=== PATIENT | female | born 1945 | race Caucasian/White ===

== ENCOUNTER 2017-07-19 09:30 | Inpatient (IN) ==
--- NOTE | 2017-07-19 08:48 | Anesthesia Evaluation PreOp ---
Date of Encounter: 07/19/17 Time of Encounter: 08:46 - Past History Planned Operation: Robotic R-partial nephrectomy Cardiac History: HTN, Hyperlipidemia Pulmonary History: Denies Any Significant HX DRIER History: Seizures (last approx 5 weeks ago) Other Medical History: Renal (Hx Renal Cyst) Anesthesia History: No Prior Anesthetic Complications, Past Anesthesia ( Hysterectomy, Ignacia, R-broken leg/ORIF?, D&C) Alcohol Use: none Medications and Allergies Alendronate Sodium [Fosamax] 70 mg PO MO 07/19/17 [History] Amlodipine Besylate [Amlodipine Besylate] 10 mg PO DAILY 07/19/17 [History] Calcium Carbonate [Calcium] 500 mg PO BID 07/19/17 [History] Ergocalciferol (VITAMIN D2) [Vitamin D2] 50,000 unit PO QMONTH 07/19/17 [History ] Gabapentin [Neurontin] 300 mg PO 5XD 07/19/17 [History] Losartan Potassium [Cozaar] 100 mg PO DAILY 07/19/17 [History] Metoprolol Succinate [Toprol Xl] 50 mg PO DAILY 07/19/17 [History] PHENobarbital [Phenobarbital] 64.8 mg PO HS 07/19/17 [History] Pantoprazole Sodium [Protonix] 40 mg PO QAM 07/19/17 [History] lamoTRIgine [Lamictal] 100 mg PO BID 07/19/17 [History] 3 Allergy/AdvReac Type Severity Reaction Status Date / Time alprazolam [From Xanax] AdvReac Dizziness Verified 07/19/17 10:02 citalopram AdvReac Dizziness Verified 07/19/17 10:02 divalproex sodium AdvReac Dizziness Verified 07/19/17 10:02 [From Depakote] Paroxetine [From Paxil] AdvReac Dizziness Verified 07/19/17 10:02 - Meds/Allergy Pre-op Review Medications Reviewed: Yes Allergies Reviewed: Yes Beta Blockers on Current Med List: Yes (Metoprolol) If Beta Blockers taken, Date/Time (Last Dose taken): 07/19/2017 @ 0600 Anesthesia Results - Labs Laboratory Tests 07/15/17 07/15/17 07/15/17 12:05 12:05 12:05 WBC 7.0 Hgb 11.6 Hct 37.0 Plt Count 192 PT 11.9 INR 1.1 APTT 34.5 Sodium 143 Potassium 4.5 Chloride 107 Carbon Dioxide 27 BUN 14 Creatinine 0.71 Est GFR (Non-Af Amer) > 60 - Imaging EKG: image reviewed Anesthesia Exam O2 Sat Height 1.6 m Height 1.6 m Weight 78.925 kg Weight 78.925 kg Height: 5'3" Weight: 174# BMI = 31 NPO (# of Hours): MNOc - HEENT Pupil (Motor): Pupils equal, EOMI Mallampati: II Teeth: Edentulous Oral Opening: Greater than 3 - DRIER LOC: Oriented DRIER Motor: Normal RUE, Normal LUE, Normal RLE, Normal LLE, Normal Face DRIER Sensory: Normal: RUE, LUE, RLE, LLE, Face - Cardiac Rhythm: Regular Murmur: None - Pulmonary Breath Sounds: bilateral Clear Respiratory Effort: Symmetrical Anesthesia Assess/Plan ASA Score: 3 (Seizures/Epilepsy, Chol, HTN, REnal Cyst) Modified Wyatt Scale for Level of Consciousness: Cooperative, oriented, and tranquil Anesthetic Plan: General Monitoring Plan: Standard Monitors Recovery Plan: PACU Anes Supervising Prov Stmt: Pt seen/evaluated, R&B discussed, questions answered and consent obtained. Addis Damon MD
[~2017-07-19 09:30] MED LIST: *HR* FentaNYL PATCH 25 MCG PATCH TD ONE; Acetaminophen IV 1,000 MG/100 ML INFUS..BTL IVPB ONE; Famotidine 20 MG/2 ML VIAL IVP ONE; Pregabalin 75 MG CAPSULE PO ONE
[2017-07-19] MEDS ORDERED: CeFAZolin Syr 2,000MG/20 ML 2,000 MG/20 ML SYRINGE IVPB ONE (09:53)
[2017-07-19] MEDS ORDERED: Ringers Solution, Lactated 1,000 ML IVC SCH (10:00)
[2017-07-19] MEDS ORDERED: Dexamethasone 4 MG/ML VIAL ONE (10:03)
[2017-07-19] MEDS ORDERED: *HR* FentaNYL (PF) 100 MCG/2 ML VIAL ONE ×2 (10:03→12:01)
[2017-07-19] MEDS ORDERED: *HR* Midazolam HCl 2 MG/2 ML VIAL ONE (10:03)
[2017-07-19] MEDS ORDERED: *HR* Rocuronium Bromide 50 MG/5 ML VIAL ONE (10:03)
[2017-07-19] MEDS ORDERED: Ondansetron 4 MG/2 ML VIAL ONE (10:03)
[2017-07-19] MEDS ORDERED: *HR* Propofol 200 MG/20 ML VIAL IVP ONE (10:03)
[2017-07-19] MEDS ORDERED: Lidocaine -MPF 2% 2 ML VIAL ONE (10:03)
--- NOTE | 2017-07-19 10:24 | History & Physical Report ---
Date of Encounter: 07/19/17 Time of Encounter: 10:24 24 Hour HP Update - Instructions Instructions: If the History and Physical is less than 30 days old and was completed prior to A.M. admission and or procedure and has NOT been updated on calendar day of procedure please complete this update prior to performing procedure. - Update Patient reports changes in Medical Condition: No Changes in examination, assessment, or condition: No Changes in Medication: No Preop tests/diagnostics Reviewed: Yes Surgery Remains Indicated: Yes Consent for Planned Operative Procedure(s) Verified: Yes - Pre-Operative Checklist Preoperative Checklist Indicated: Yes Prophylactic Antibiotic Ordered: Yes Home Medications Include Beta Law: Yes Is VTE Prophylaxis Indicated?: Yes
[2017-07-19] MEDS ORDERED: Lidocaine -MPF 4% 5 ML AMPUL ONE (10:26)
[2017-07-19] MEDS ORDERED: Bupivacaine-MPF 0.25% 10 ML VIAL ONE (10:28)
[2017-07-19] MEDS ORDERED: Albumin Human 5% 25.0 GM/500 ML VIAL ONE (10:30)
[2017-07-19] MEDS ORDERED: Mannitol 25% vial 12.5 GM/50 ML VIAL ONE (10:30)
[2017-07-19] MEDS ORDERED: EPHEDrine 50 MG/ML VIAL ONE (12:27)
[2017-07-19] MEDS ORDERED: *HR* FentaNYL (PF) 100 MCG/2 ML VIAL IVP PRN (15:07)
[2017-07-19] MEDS ORDERED: Ondansetron 4 MG/2 ML VIAL IVP PRN ×2 (15:07→17:12)
[2017-07-19] MEDS ORDERED: Neostigmine Methylsulfate 3 MG/3 ML SYRINGE ONE (15:20)
--- NOTE | 2017-07-19 15:38 | Operative Note ---
Date of procedure: 07/19/17 Pre-op diagnosis: Right enhancing renal cyst Post-op diagnosis: same Procedure: Right robotic-assisted laparoscopic partial nephrectomy Implants: 19-Wallisian Jef drain 16 Wallisian Lee catheter Complications: None Anesthesia: MATILDEA Surgeon: Salazar Montano Was there an assistant in nursing present: Yes Slitter Scorer: Anthony Pollock Estimated blood loss (cc): 300 Specimen: right renal cyst Condition: stable Disposition: PACU Procedure in Detail: Indications: Jasmin is a 71-year-old woman who presents with an enhancing right renal cyst. After discussion of her options which included observation, biopsy, ablative techniques, or partial nephrectomy, she elected to undergo a right robotic partial nephrectomy. She was informed of the risks of the procedure which include but are not limited to bleeding, infection, injury to other structures, need for further procedures, urine leak, bowel injury, need for complete nephrectomy, need for open conversion, and the risk of anesthesia. She is willing to proceed. Procedure: After informed consent was obtained the patient was brought back to the operating room and placed in the supine position. A timeout was performed. Gen. anesthesia was then administered and an endotracheal tube was placed. Appropriate IV access and arterial lines were obtained. She was then placed in the flank position. Her right side was up. All pressure points were padded. She was well secured to the table. She was then prepped and draped in the usual sterile fashion. We then marked out our incision 2 fingerbreadths superior to the umbilicus and 2 fingerbreadths lateral to that. An 8 mm incision was then made. The Veress needle was introduced. 2 clicks were heard. It past the water drop test. Insufflation was then initiated. Pressures were low consecutively. The abdomen was insufflated. Once the pressure was up to 15, we inserted the 5 mm laparoscopic port with the visual obturator and the 5 mm laparoscopic camera. Entry was obtained into the abdomen. The bowel was surveyed below and there is no evidence of bowel injury. She previously had a large right upper quadrant incision when she had her gallbladder removed. I decided to approach this through a Visiport. Once in the abdomen there was a large adhesion extending from the omentum to the anterior abdominal wall. This was dissected down sharply. The lysis of adhesions took approximately 20 minutes. There is no evidence of bowel issue. Areas of bleeding near the abdominal wall were controlled using cautery. Robotic ports were then inserted. 2 robotic ports were placed inferior along the midclavicular line. Another robotic port was placed superior to the camera port in the midclavicular line just under the costal margin. The 5 mm port was exchanged for an 8 mm robotic port. A 12 mm assistant in nursing port was placed just lateral to the umbilicus. A 5 mm port was placed along the midline superior to the umbilicus and this was used to retract the liver. The bowel was reflected off the kidney along the white line of Toldt using electrocautery dissection. The duodenum was identified. This was kocherized. The inferior vena cava was then seen and dissection proceeded superiorly to the level of the renal vein. Superior to the renal vein I identified the renal artery and this was dissected out. The liver was reflected away using a locking laparoscopic clamp to the abdominal sidewall. Once the renal artery was freed I then began to mobilize the kidney. The cyst was located superiorly and I mobilized the kidney significantly along the lateral and inferior aspects. Dissection proceeded superiorly. I was able to get completely around the mass. It was well exposed. I did create a small laceration into the cyst and some of the cyst fluid came out of the cyst. The ultrasound was then brought in and I identified the borders of the mass and these areas were scored on the kidney using electrocautery. Mannitol was given. The renal artery was clamped using the bulldog. The cyst was excised sharply using cold scissors. Once the tumor was removed I utilized a 3-O V-LOC suture to close the deeper vessels in a running fashion. Hemostasis was then achieved along these vessels. I then closed the capsule to itself using 0 V-LOCl suture in an interrupted fashion with the sliding clip renorrhaphy technique. Hemostasis was good. The bulldog clamp was removed. 21 minutes of warm ischemia time was noted. Once the bulldog clamp was removed, FloSeal was applied to the resection area. Hemostasis seemed adequate. The specimen was removed in an entrapment bag. A 19 Wallisian Jef drain was then placed. All the ports were then removed. The port where the tumor was extracted was closed. The fascia was closed in a running fashion using an 0 Vicryl suture. The wounds were closed using 4-0 Monocryl suture. The drain was secured to the skin using a nylon suture. The abdomen was then washed and dried and Dermabond was applied to the wounds. The patient was then awakened from general anesthesia and brought to recovery room in good condition. All sponge, needle, and instrument counts were correct.l
[2017-07-19] MEDS: *HR* HYDROmorphone (PF) 1 MG/ML SYRINGE IVP PRN ×2 (15:45→16:25)
[2017-07-19 16:34] LABS: Hematocrit 29.6 % (35.3-44.9)
[2017-07-19 16:35] LABS: Hemoglobin 9.4 g/dL (11.5-15.4)
[2017-07-19] MEDS ORDERED: D5% in Water 1,000 ML IVC PRN (17:12)
[2017-07-19] MEDS ORDERED: Naloxone 0.4 MG/ML INJ IVP PRN ×2 (17:12)
[2017-07-19] MEDS ORDERED: *HR* Dextrose 50 % in Water (Syg) 50 ML SYRINGE IVP PRN (17:12)
[2017-07-19] MEDS ORDERED: Dextrose Gel 15 GM/37.5 ML TUBE PO PRN ×2 (17:12)
[2017-07-19] MEDS: Insulin LISPRO 300 UNITS/3 ML VIAL SQ SCH (17:46)
[2017-07-19] MEDS: 0.9 % Sodium Chloride 1,000 ML IVC SCH (17:46)
[2017-07-19] MEDS: Gabapentin 300 MG CAPSULE PO SCH ×2 (18:00→20:29)
--- NOTE | 2017-07-19 18:56 | Anesthesia Evaluation Post Op ---
Date of Encounter: 07/19/17 Time of Encounter: 18:56 - Vital Signs Vital Signs: Vital Signs/O2 Sat, Most Current Temp Pulse Resp BP Pulse Ox 97.4 F L 80 15 153/65 94 07/19/17 18:30 07/19/17 18:30 07/19/17 18:30 07/19/17 18:30 07/19/17 18:30 - Lungs Lungs: Clear Ascult./Percussion - Airway Airway: Non-obstructed - Cardiovascular Regular Rate - Mental Status Mental Status: Alert & Oriented, Answers Appropriately - Pain Pain Scale: 4 Pain Scale used: Numeric (1 - 10) - Nausea Vomiting Nausea Vomiting: Not Present - Hydration Hydration: NPO, Lee catheter - Discharge PostOp Status: Transfer Patient to floor
[2017-07-19 19:59] LABS: Hematocrit 29.6 % (35.3-44.9); Hemoglobin 9.5 g/dL (11.5-15.4)
[2017-07-19] MEDS: CeFAZolin Pre 2,000 MG/100 ML 2,000 MG/100 ML BAG IVPB SCH (20:16)
[2017-07-19] MEDS: lamoTRIgine 100 MG TABLET PO SCH (20:17)
[2017-07-19] MEDS: *HR* OxyCODONE Immed Rel 5 MG TABLET PO PRN (20:28)
[2017-07-20] MEDS: *HR* OxyCODONE Immed Rel 5 MG TABLET PO PRN ×4 (02:06→20:34)
[2017-07-20] MEDS: 0.9 % Sodium Chloride 1,000 ML IVC SCH (02:07)
[2017-07-20] MEDS: Gabapentin 300 MG CAPSULE PO SCH ×5 (02:07→20:34)
[2017-07-20] MEDS: PHENobarbital 32.4 MG TABLET PO SCH ×2 (02:34→20:34)
[2017-07-20] MEDS: CeFAZolin Pre 2,000 MG/100 ML 2,000 MG/100 ML BAG IVPB SCH (04:19)
[2017-07-20 04:45] LABS: Basophils % 0.1 %; Hematocrit 29.3 % (35.3-44.9); Hemoglobin 9.3 g/dL (11.5-15.4); Immature Granulocytes % 0.4 % (0-4); Lymphocytes # 1.3 K/mcL (0.6-4.6); Lymphocytes % 12.8 %; Mean Corpuscular HGB Conc 31.7 g/dL (31.6-35.5); Mean Corpuscular Hemoglobin 27.6 pg (28.0-33.3); Mean Corpuscular Volume 86.9 fL (83.0-100.0); Mean Platelet Volume 11.5 fL (9.4-12.4); Monocytes % 9.7 %; Neutrophils # 8.1 K/mcL (1.6-8.9); Platelet Count 171 K/mcL (140-400); Red Blood Count 3.37 M/mcL (3.82-4.97); Red Cell Distribution Width 16.1 % (11.5-14.5)
[2017-07-20 05:04] LABS: BUN/Creatinine Ratio 21 (6-26); Blood Urea Nitrogen 16 mg/dL (8-23); Calcium 8.5 mg/dL (8.6-10.3); Carbon Dioxide 23 mEq/L (23-29); Chloride 105 mEq/L (98-107); Glucose 119 mg/dL (70-105); Osmolality,Calculated 282 (280-300); Potassium 3.9 mEq/L (3.5-5.1); Sodium 135 mEq/L (136-145); eGFR For African Americans > 60 (> 60); eGFR For Non-African Americans > 60 (> 60)
[2017-07-20] MEDS ORDERED: 0.9 % Sodium Chloride 500 ML IVC ONE (07:16)
--- NOTE | 2017-07-20 07:16 | Urology Progress Note ---
Date of Encounter: 07/20/17 Time of Encounter: 07:11 - Assessment and Plan (1) Renal cyst, right Current Visit: Yes Status: Acute Assessment and plan: 71-year-old woman status post right robotic partial nephrectomy for a Bosniak 3 renal cyst. Her pain seems adequately controlled with oral medications. JOHN drain has been productive with some sanguinous fluid. Output seems to be reducing from the immediate post operative period until now. 1. We will have a PT consultation to help with ambulation. 2. Continue JOHN drain. 3. Urine output has been adequate but slightly low. I will order a 500ml bolus of IVF today. Heart rate has been in the low 90s. I will continue to monitor. 4. Continue clear liquid diet. Await return of bowel function. 5. Continue PPI and SCDs for prophylaxis. 6. Ambulate 3x/day. Progress Note Narrative: Postoperative day #1 status post right partial nephrectomy for an enhancing right renal cyst. Her pain is adequately controlled oral medications. She denies any shortness of breath or chest pain. She denies any flatus. She is tolerating ice chips and small sips of water. She has difficulty taking deep breaths secondary to pain. She reports some cough. She denies any nausea. JOHN has been draining sanguinous fluid. Hemoglobin and hematocrit have been stable overnight. Objective Initial Vital Signs Temp Pulse Resp BP Pulse Ox 97.8 F 67 18 169/83 96 07/19/17 10:33 07/19/17 10:33 07/19/17 10:33 07/19/17 10:33 07/19/17 10:33 - General physical appearance Present: well developed, well nourished, no distress - Respiratory Present: normal respiratory effort - Abdomen Present: soft, tender (Appropriately tender. Incisions are clean, dry, and intact. JOHN drain in place with sanguinous fluid.) - Genitourinary Urine Appearance: Present: Clear - Integumentary Present: no rash - Labs 07/20/17 03:55 07/20/17 03:55 Diabetes panel 07/20/17 Range/Units 03:55 Sodium 135 L (136-145) mEq/L Potassium 3.9 (3.5-5.1) mEq/L Chloride 105 (98-107) mEq/L Carbon Dioxide 23 (23-29) mEq/L BUN 16 (8-23) mg/dL Creatinine 0.75 (0.60-1.20) mg/dL Glucose 119 H (70-105) mg/dL Calcium 8.5 L (8.6-10.3) mg/dL Calcium panel 07/20/17 Range/Units 03:55 Calcium 8.5 L (8.6-10.3) mg/dL Pituitary panel 07/20/17 Range/Units 03:55 Sodium 135 L (136-145) mEq/L Potassium 3.9 (3.5-5.1) mEq/L Chloride 105 (98-107) mEq/L Carbon Dioxide 23 (23-29) mEq/L BUN 16 (8-23) mg/dL Creatinine 0.75 (0.60-1.20) mg/dL Glucose 119 H (70-105) mg/dL Calcium 8.5 L (8.6-10.3) mg/dL Adrenal panel 07/20/17 Range/Units 03:55 Sodium 135 L (136-145) mEq/L Potassium 3.9 (3.5-5.1) mEq/L Chloride 105 (98-107) mEq/L Carbon Dioxide 23 (23-29) mEq/L BUN 16 (8-23) mg/dL Creatinine 0.75 (0.60-1.20) mg/dL Glucose 119 H (70-105) mg/dL Calcium 8.5 L (8.6-10.3) mg/dL - VTE Documentation of Mechanical Device: Intermittent pneumatic compression device Consult Discharge Plan - Plan Referrals: Salazar Montano MD [Partnered Physician] - Poonam Hermosillo MD [Primary Care Provider] -
[2017-07-20] MEDS: Insulin LISPRO 300 UNITS/3 ML VIAL SQ SCH ×3 (07:44→17:17)
[2017-07-20] MEDS: Metoprolol XL (24 HR) Succ 50 MG TAB.ER.24H PO SCH (07:44)
[2017-07-20] MEDS: lamoTRIgine 100 MG TABLET PO SCH ×2 (07:44→20:33)
[2017-07-20] MEDS: amLODIPine 5 MG TABLET PO SCH (07:45)
[2017-07-20] MEDS: D5% in 0.45% NACL w KCl 20 MEQ/1,000 ML MLS IVC SCH ×2 (09:29→18:01)
[2017-07-20] MEDS: OXYCODONE Oral CONC 10 MG/0.5 ML ORAL.SYG SL PRN (15:18)
[2017-07-20] MEDS: Acetaminophen 325 MG TABLET PO PRN (20:33)
[2017-07-21] MEDS: Gabapentin 300 MG CAPSULE PO SCH ×5 (00:45→20:17)
[2017-07-21] MEDS: D5% in 0.45% NACL w KCl 20 MEQ/1,000 ML MLS IVC SCH ×2 (02:41→10:11)
[2017-07-21] MEDS: *HR* OxyCODONE Immed Rel 5 MG TABLET PO PRN ×3 (04:26→20:05)
[2017-07-21] MEDS: Acetaminophen 325 MG TABLET PO PRN (05:10)
[2017-07-21 05:27] LABS: Basophils % 0.2 %; Eosinophils # 0.1 K/mcL (0.0-0.6); Eosinophils % 0.5 %; Hematocrit 25.7 % (35.3-44.9); Hemoglobin 8.2 g/dL (11.5-15.4); Immature Granulocytes % 0.7 % (0-4); Lymphocytes # 1.6 K/mcL (0.6-4.6); Lymphocytes % 14.9 %; Mean Corpuscular HGB Conc 31.9 g/dL (31.6-35.5); Mean Corpuscular Hemoglobin 27.9 pg (28.0-33.3); Mean Corpuscular Volume 87.4 fL (83.0-100.0); Mean Platelet Volume 11.9 fL (9.4-12.4); Monocytes # 1.4 K/mcL (0.0-1.3); Neutrophils # 7.4 K/mcL (1.6-8.9); Platelet Count 153 K/mcL (140-400); Red Blood Count 2.94 M/mcL (3.82-4.97); Red Cell Distribution Width 16.5 % (11.5-14.5); Segmented Neutrophils % 70.7 %
[2017-07-21 05:46] LABS: BUN/Creatinine Ratio 22 (6-26); Blood Urea Nitrogen 14 mg/dL (8-23); Calcium 7.7 mg/dL (8.6-10.3); Carbon Dioxide 22 mEq/L (23-29); Chloride 104 mEq/L (98-107); Glucose 125 mg/dL (70-105); Osmolality,Calculated 274 (280-300); Potassium 3.9 mEq/L (3.5-5.1); Sodium 131 mEq/L (136-145); eGFR For African Americans > 60 (> 60); eGFR For Non-African Americans > 60 (> 60)
--- NOTE | 2017-07-21 06:49 | Urology Progress Note ---
Date of Encounter: 07/21/17 Time of Encounter: 06:43 - Assessment and Plan (1) Renal cyst, right Current Visit: Yes Status: Acute Assessment and plan: Postop day #2 status post right robotic partial nephrectomy. 1. I will advance her diet to a regular diet. Advised her to go slow with the diet. 2. Continue to ambulate 3 times per day. 3. I will decrease her IV fluids and order 20 mg of Lasix IV. She appears to be mobilizing fluid at this time. 4. Continue Lee catheter for now to closely monitor urine output. 5. Continue SCDs and PPI for prophylaxis. I will hold off on subcutaneous heparin for DVT prophylaxis given her dropping hemoglobin. 6. I will repeat an H&H this afternoon. She is still hemodynamically stable. Some of this may be dilutional, but there is likely still some bleeding from the kidney. If the bleeding persists into tomorrow, we can proceed with a CT angiogram to see if there is an arterial bleed that may be amenable to an angioembolization. Given the slow output from the drain, I think it is more likely venous bleeding which will eventually tamponade. 7. I will check a chest x-ray today to evaluate for possible atelectasis versus pneumonia. (2) Anemia due to acute blood loss Current Visit: Yes Status: Acute Progress Note Narrative: Postop day #2 status post right robotic partial nephrectomy. Drain output has still been high. Hemoglobin drop from yesterday to today. She had some temperature yesterday which improved with incentive spirometry and acetaminophen. She has been able to ambulate. She is tolerating clear liquids. She denies flatus. She feels hungry today. Urine output improved overnight. Objective Initial Vital Signs Temp Pulse Resp BP Pulse Ox 97.8 F 67 18 169/83 96 07/19/17 10:33 07/19/17 10:33 07/19/17 10:33 07/19/17 10:33 07/19/17 10:33 - General physical appearance Present: well developed, well nourished, no distress - Respiratory Present: normal respiratory effort - Abdomen Present: soft (Appropriately tender. Incisions are clean, dry, and intact. JOHN with sanguinous drainage.) - Genitourinary Urine Appearance: Present: Clear - Labs 07/21/17 04:16 07/21/17 04:16 Diabetes panel 07/21/17 Range/Units 04:16 Sodium 131 L (136-145) mEq/L Potassium 3.9 (3.5-5.1) mEq/L Chloride 104 (98-107) mEq/L Carbon Dioxide 22 L (23-29) mEq/L BUN 14 (8-23) mg/dL Creatinine 0.64 (0.60-1.20) mg/dL Glucose 125 H (70-105) mg/dL Calcium 7.7 L (8.6-10.3) mg/dL Calcium panel 07/21/17 Range/Units 04:16 Calcium 7.7 L (8.6-10.3) mg/dL Pituitary panel 07/21/17 Range/Units 04:16 Sodium 131 L (136-145) mEq/L Potassium 3.9 (3.5-5.1) mEq/L Chloride 104 (98-107) mEq/L Carbon Dioxide 22 L (23-29) mEq/L BUN 14 (8-23) mg/dL Creatinine 0.64 (0.60-1.20) mg/dL Glucose 125 H (70-105) mg/dL Calcium 7.7 L (8.6-10.3) mg/dL Adrenal panel 07/21/17 Range/Units 04:16 Sodium 131 L (136-145) mEq/L Potassium 3.9 (3.5-5.1) mEq/L Chloride 104 (98-107) mEq/L Carbon Dioxide 22 L (23-29) mEq/L BUN 14 (8-23) mg/dL Creatinine 0.64 (0.60-1.20) mg/dL Glucose 125 H (70-105) mg/dL Calcium 7.7 L (8.6-10.3) mg/dL - VTE Documentation of Mechanical Device: Intermittent pneumatic compression device Consult Discharge Plan - Plan Referrals: Salazar Montano MD [Partnered Physician] - Poonam Hermosillo MD [Primary Care Provider] -
[2017-07-21] MEDS ORDERED: Furosemide 20 MG/2 ML VIAL IVP ONE (06:51)
[2017-07-21] MEDS: amLODIPine 5 MG TABLET PO SCH (07:58)
[2017-07-21] MEDS: Metoprolol XL (24 HR) Succ 50 MG TAB.ER.24H PO SCH (07:58)
[2017-07-21] MEDS: lamoTRIgine 100 MG TABLET PO SCH ×2 (07:58→20:06)
[2017-07-21] MEDS: Insulin LISPRO 300 UNITS/3 ML VIAL SQ SCH ×3 (07:59→16:00)
[2017-07-21 16:47] LABS: Hematocrit 28.2 % (35.3-44.9); Hemoglobin 9.3 g/dL (11.5-15.4)
[2017-07-21] MEDS: PHENobarbital 32.4 MG TABLET PO SCH (20:06)
[2017-07-22] MEDS: *HR* OxyCODONE Immed Rel 5 MG TABLET PO PRN ×3 (01:23→15:25)
[2017-07-22] MEDS: Gabapentin 300 MG CAPSULE PO SCH ×6 (01:23→23:28)
[2017-07-22] MEDS: D5% in 0.45% NACL w KCl 20 MEQ/1,000 ML MLS IVC SCH (05:27)
--- NOTE | 2017-07-22 07:28 | Urology Progress Note ---
Date of Encounter: 07/22/17 Time of Encounter: 07:24 - Assessment and Plan (1) Renal cyst, right Current Visit: Yes Status: Acute Assessment and plan: Postop day #3 status post right robotic partial nephrectomy. 1. She has had some low-grade temperatures. I will check a 2 view x-ray today of the chest. 2. I will send a urine for culture. 3. DC Lee today. 4. Continue general diet. 5. I will continue to follow JOHN or other course of the day today. Anticipate removal later today if it continues to have minimal output. 6. Hep-Lock IV fluids. 7. SCDs for DVT prophylaxis and PPI. We will hold off on subcutaneous heparin given concern for postoperative hemorrhage. 8. Anticipate DC to long term facility tomorrow. (2) Anemia due to acute blood loss Current Visit: Yes Status: Acute Progress Note Narrative: Postop day #3 status post right robotic partial nephrectomy. She has had some low-grade temperatures overnight. Urine output has been good. Drain output has come down. She is tolerating general diet. She reports passing flatus. Objective Initial Vital Signs Temp Pulse Resp BP Pulse Ox 97.8 F 67 18 169/83 96 07/19/17 10:33 07/19/17 10:33 07/19/17 10:33 07/19/17 10:33 07/19/17 10:33 - General physical appearance Present: well developed, well nourished, no distress - Respiratory Present: normal respiratory effort - Abdomen Present: soft (Appropriately tender. Incisions are clean, dry, and intact. JOHN with scant serosanguineous drainage.) - Genitourinary Urine Appearance: Present: Clear - Labs 07/21/17 16:07 07/21/17 04:16 - VTE Documentation of Mechanical Device: Intermittent pneumatic compression device Consult Discharge Plan - Plan Referrals: Salazar Montano MD [Partnered Physician] - Poonam Hermosillo MD [Primary Care Provider] -
[2017-07-22 07:59] LABS: Basophils % 0.1 %; Eosinophils # 0.1 K/mcL (0.0-0.6); Eosinophils % 0.7 %; Hematocrit 24.6 % (35.3-44.9); Hemoglobin 8.1 g/dL (11.5-15.4); INR 1.3; Immature Granulocytes % 0.6 % (0-4); Lymphocytes # 1.7 K/mcL (0.6-4.6); Lymphocytes % 12.7 %; Mean Corpuscular HGB Conc 32.9 g/dL (31.6-35.5); Mean Corpuscular Hemoglobin 28.5 pg (28.0-33.3); Mean Corpuscular Volume 86.6 fL (83.0-100.0); Mean Platelet Volume 12.2 fL (9.4-12.4); Monocytes # 1.3 K/mcL (0.0-1.3); Monocytes % 9.6 %; Neutrophils # 10.2 K/mcL (1.6-8.9); Platelet Count 178 K/mcL (140-400); Prothrombin Time 14.3 Seconds (9.4-12.1); Red Blood Count 2.84 M/mcL (3.82-4.97); Red Cell Distribution Width 16.1 % (11.5-14.5); Segmented Neutrophils % 76.3 %
[2017-07-22] MEDS: amLODIPine 5 MG TABLET PO SCH (08:29)
[2017-07-22] MEDS: Insulin LISPRO 300 UNITS/3 ML VIAL SQ SCH ×3 (08:30→19:11)
[2017-07-22] MEDS: lamoTRIgine 100 MG TABLET PO SCH ×2 (08:30→20:32)
[2017-07-22] MEDS: Acetaminophen 325 MG TABLET PO PRN (08:30)
[2017-07-22] MEDS: Metoprolol XL (24 HR) Succ 50 MG TAB.ER.24H PO SCH (08:30)
[2017-07-22 09:45] LABS: BUN/Creatinine Ratio 25 (6-26); Blood Urea Nitrogen 13 mg/dL (8-23); Calcium 7.9 mg/dL (8.6-10.3); Carbon Dioxide 21 mEq/L (23-29); Chloride 102 mEq/L (98-107); Glucose 121 mg/dL (70-105); Magnesium 1.6 mg/dL (1.6-2.6); Osmolality,Calculated 267 (280-300); Phosphorous 1.6 mg/dL (2.7-4.5); Potassium 4.1 mEq/L (3.5-5.1); Sodium 128 mEq/L (136-145); eGFR For African Americans > 60 (> 60); eGFR For Non-African Americans > 60 (> 60)
[2017-07-22] MEDS ORDERED: Furosemide 20 MG/2 ML VIAL IVP ONE (16:22)
[2017-07-22] MEDS: OXYCODONE Oral CONC 10 MG/0.5 ML ORAL.SYG SL PRN (18:55)
[2017-07-22] MEDS: PHENobarbital 32.4 MG TABLET PO SCH (20:32)
[2017-07-23] MEDS: *HR* OxyCODONE Immed Rel 5 MG TABLET PO PRN (02:52)
[2017-07-23 05:00] LABS: Basophils % 0.2 %; Eosinophils # 0.1 K/mcL (0.0-0.6); Eosinophils % 0.4 %; Hemoglobin 8.5 g/dL (11.5-15.4); Immature Granulocytes % 0.6 % (0-4); Lymphocytes # 1.5 K/mcL (0.6-4.6); Lymphocytes % 10.7 %; Mean Corpuscular Hemoglobin 28.8 pg (28.0-33.3); Mean Corpuscular Volume 84.7 fL (83.0-100.0); Mean Platelet Volume 12.5 fL (9.4-12.4); Monocytes # 1.4 K/mcL (0.0-1.3); Monocytes % 9.8 %; Platelet Count 197 K/mcL (140-400); Red Blood Count 2.95 M/mcL (3.82-4.97); Red Cell Distribution Width 15.9 % (11.5-14.5); Segmented Neutrophils % 78.3 %
[2017-07-23 05:20] LABS: BUN/Creatinine Ratio 29 (6-26); Blood Urea Nitrogen 14 mg/dL (8-23); Carbon Dioxide 21 mEq/L (23-29); Chloride 99 mEq/L (98-107); Glucose 120 mg/dL (70-105); Osmolality,Calculated 264 (280-300); Potassium 3.6 mEq/L (3.5-5.1); Sodium 126 mEq/L (136-145); eGFR For African Americans > 60 (> 60); eGFR For Non-African Americans > 60 (> 60)
--- NOTE | 2017-07-23 07:10 | Urology Progress Note ---
Date of Encounter: 07/23/17 Time of Encounter: 07:07 - Assessment and Plan (1) Renal cyst, right Current Visit: Yes Status: Acute Assessment and plan: Postop day #4 status post right robotic partial nephrectomy. She has had some low-grade temperatures. She is ambulating well and tolerating oral diet. She has had hyponatremia and her white blood cell count seems to be rising. I called the hospitalist yesterday, and they recommend a nephrology consultation. 1. Continue general diet. 2. Continue ambulation. 3. I will send the JOHN drain for a repeat creatinine today. Previously, it was slightly higher than serum level at 0.7. I think there is low risk for urine leak, but I would like to repeat the JOHN creatinine to confirm no urine leak prior to removal. 4. She has a leukocytosis and has had some low-grade temperatures. I will start her on levofloxacin orally for possible pneumonia. This may be just atelectasis, but I feel it would best to treat an earlier stage. 5. Consult nephrology for hyponatremia. 6. Okay to shower. 7. Hemoglobin is stable. Continue SCDs and PPI for prophylaxis. We will hold off on subcutaneous heparin given postoperative hemorrhage. (2) Anemia due to acute blood loss Current Visit: Yes Status: Acute (3) Hyponatremia Current Visit: Yes Status: Acute (4) Leukocytosis Current Visit: Yes Status: Acute Qualifiers: Qualified Code(s): D72.829 - Elevated white blood cell count, unspecified Progress Note Narrative: Postoperative day #4 status post right robotic partial nephrectomy. She is doing well today. She is still taking a fair amount of pain medication to control pain. She has tolerated diet. She is passing gas. She is tolerating oral liquids. She is voiding well. Low-grade temperature yesterday. White blood cell count is increasing. She also has hyponatremia. Objective Initial Vital Signs Temp Pulse Resp BP Pulse Ox 97.8 F 67 18 169/83 96 07/19/17 10:33 07/19/17 10:33 07/19/17 10:33 07/19/17 10:33 07/19/17 10:33 - General physical appearance Present: well developed, well nourished, no distress - Respiratory Present: normal respiratory effort - Abdomen Present: soft (Appropriately tender. Incisions are clean, dry, and intact. JOHN drain with serosanguineous drainage.) - Integumentary Present: no rash - Musculoskeletal Present: normal posture - Labs 07/23/17 04:01 07/23/17 04:01 Diabetes panel 07/22/17 07/23/17 Range/Units 06:41 04:01 Sodium 128 L 126 L (136-145) mEq/L Potassium 4.1 3.6 (3.5-5.1) mEq/L Chloride 102 99 (98-107) mEq/L Carbon Dioxide 21 L 21 L (23-29) mEq/L BUN 13 14 (8-23) mg/dL Creatinine 0.53 L 0.48 L (0.60-1.20) mg/dL Glucose 121 H 120 H (70-105) mg/dL Calcium 7.9 L 8.0 L (8.6-10.3) mg/dL Calcium panel 07/22/17 07/23/17 Range/Units 06:41 04:01 Calcium 7.9 L 8.0 L (8.6-10.3) mg/dL Phosphorus 1.6 L (2.7-4.5) mg/dL Pituitary panel 07/22/17 07/23/17 Range/Units 06:41 04:01 Sodium 128 L 126 L (136-145) mEq/L Potassium 4.1 3.6 (3.5-5.1) mEq/L Chloride 102 99 (98-107) mEq/L Carbon Dioxide 21 L 21 L (23-29) mEq/L BUN 13 14 (8-23) mg/dL Creatinine 0.53 L 0.48 L (0.60-1.20) mg/dL Glucose 121 H 120 H (70-105) mg/dL Calcium 7.9 L 8.0 L (8.6-10.3) mg/dL Adrenal panel 07/22/17 07/23/17 Range/Units 06:41 04:01 Sodium 128 L 126 L (136-145) mEq/L Potassium 4.1 3.6 (3.5-5.1) mEq/L Chloride 102 99 (98-107) mEq/L Carbon Dioxide 21 L 21 L (23-29) mEq/L BUN 13 14 (8-23) mg/dL Creatinine 0.53 L 0.48 L (0.60-1.20) mg/dL Glucose 121 H 120 H (70-105) mg/dL Calcium 7.9 L 8.0 L (8.6-10.3) mg/dL - VTE Documentation of Mechanical Device: Intermittent pneumatic compression device Consult Discharge Plan - Plan Referrals: Salazar Montano MD [Partnered Physician] - Poonam Hermosillo MD [Primary Care Provider] -
[2017-07-23] MEDS ORDERED: Ibuprofen 600 MG TABLET PO PRN (07:17)
[2017-07-23] MEDS ORDERED: levoFLOXacin 750 MG TABLET PO SCH (09:00)
[2017-07-23] MEDS: lamoTRIgine 100 MG TABLET PO SCH ×2 (10:32→20:33)
[2017-07-23] MEDS: Metoprolol XL (24 HR) Succ 50 MG TAB.ER.24H PO SCH (10:32)
[2017-07-23] MEDS: amLODIPine 5 MG TABLET PO SCH (10:32)
[2017-07-23] MEDS: Gabapentin 300 MG CAPSULE PO SCH (10:57)
[2017-07-23] MEDS ORDERED: *HR* LORazepam 2 MG/ML VIAL ONE ×2 (15:35→15:43)
--- NOTE | 2017-07-23 16:01 | Internal Medicine Consult Note ---
Date of Encounter: 07/23/17 Time of Encounter: 15:51 - Assessment and plan (1) Delirium Current Visit: Yes Status: Acute Assessment and plan: post-op delirum, will add scheduled zyprexa, sitter, restraint prn (2) Seizure Current Visit: Yes Status: Acute (3) Hyponatremia Current Visit: Yes Status: Acute Assessment and plan: check Urine Osmo, sodium, she got lasix yesterday, will give 250 ml bolus (4) Leukocytosis Current Visit: Yes Status: Acute Assessment and plan: check UA stat, CXR has no pneumonia, afebrile, on ceftriaxone Qualifiers: Qualified Code(s): D72.829 - Elevated white blood cell count, unspecified - Time Spent With Patient Total time spent is greater than 50% in coordination of care (as documented) at patient's floor/unit and/or counseling patient: Internal Medicine - CN: HPI - Data of Consult Patient: new to practice Consult date: 07/23/17 Requesting Physician: Salazar Montano, - Consult Narrative Reason for consult: Acute delirium History of present illness: Ms. Lopez is a 71 year old female who has a history of seizure renal cyst, had the partial nephrectomy on July 19. Patient developed acute mental status changes we will consult for AMS. When I saw the patient and she is very agitated, yelling at people, she pullled draining out, trying to get out of bed. She knows in the hospital, had a surgery done. But she is confused, does not know her brother's name. I give 1 mg of Ativan, it did not seem helping. I reviewed all her home medications she has been taking all seizure medications here. lab showed leukocytosis, and hyponatremia. she had a dose of Levaquin this morning for possible pneumonia. #1 acute postoperative delirium, we will add zyprexa, soft restraint, will consider, frequent reorientation #2. Hyponatremia. will check urine OSmo, sodisum #3. Leukocytosis, will [facility] UA, CXR showed possible atelactosis #4. hx of seizure, conitnue home meds Past Med Surg Social Fam HX - Past Medical History Medical history: hyperlipidemia, hypertension, seizures Psychiatric history: anxiety - Past Surgical History Surgical History: cholecystectomy, hysterectomy - Social History Smoking Status: Never smoker Smokeless Tobacco Status: No Alcohol use: none Drug use: none ROS unobtainable: due to mental status Internal Medicine - CN: Meds Alendronate Sodium [Fosamax] 70 mg PO MO 07/19/17 [History] Amlodipine Besylate [Amlodipine Besylate] 10 mg PO DAILY 07/19/17 [History] Calcium Carbonate [Calcium] 500 mg PO BID 07/19/17 [History] Ergocalciferol (VITAMIN D2) [Vitamin D2] 50,000 unit PO QMONTH 07/19/17 [History ] Gabapentin [Neurontin] 300 mg PO 5XD 07/19/17 [History] Losartan Potassium [Cozaar] 100 mg PO DAILY 07/19/17 [History] Metoprolol Succinate [Toprol Xl] 50 mg PO DAILY 07/19/17 [History] PHENobarbital [Phenobarbital] 64.8 mg PO HS 07/19/17 [History] Pantoprazole Sodium [Protonix] 40 mg PO QAM 07/19/17 [History] lamoTRIgine [Lamictal] 100 mg PO BID 07/19/17 [History] 3 Allergy/AdvReac Type Severity Reaction Status Date / Time alprazolam [From Xanax] AdvReac Dizziness Verified 07/19/17 10:02 citalopram AdvReac Dizziness Verified 07/19/17 10:02 divalproex sodium AdvReac Dizziness Verified 07/19/17 10:02 [From Depakote] Paroxetine [From Paxil] AdvReac Dizziness Verified 07/19/17 10:02 Internal Medicine - CN: Exam - Constitutional Vitals: Temp Pulse Resp BP Pulse Ox 98.5 F 91 18 141/69 93 07/23/17 10:50 07/23/17 14:00 07/23/17 14:00 07/23/17 14:00 07/23/17 14:00 General appearance IM: Present: A&O X 1, severe distress Exam: CONSTITUTIONAL: Patient appears as an age appropriate female well developed, in no acute distress. EYES Clear sclerae, bilateral pupils are equal, reactive to light and accommodation. Extraocular movements are intact RESPIRATORY: No accessory muscle use, bilateral clear to auscultation, no wheezing, no crackles/rales. CARDIOVASCULAR: Regular heart rate, normal S1 and S2, no murmurs GASTROINTESTINAL: bowel sounds present, soft, no tenderness. No hepatosplenomegaly. No bilateral CVA tenderness MUSCULOSKELETAL: Joints in normal range of motion, no clubbing, no edema, no cyanosis. Bilateral peripheral pulses 2+ LYMPHATIC no lymphadenopathy in neck, groin and axilla bilaterally, no thyromegaly. NEUROLOGIC: CN II to XII are grossly intact, no focal neurological deficit. Deep tendon reflexes 2+ bilaterally. Normal light touch sensation to upper and lower extremity PSYCHIATRIC: Oriented x1, without good insight, mood is agitated. No hallucinations or delusions. SKIN: Skin warm and dry, no rashes, no open wound. Internal Medicine - CN: Reslt - Labs CBC & Chem 7: 07/23/17 04:01 07/23/17 04:01 Labs: Short CBC 07/23/17 Range/Units 04:01 WBC 14.1 H (4.3-11.1) K/mcL Hgb 8.5 L (11.5-15.4) g/dL Hct 25.0 L (35.3-44.9) % Plt Count 197 (140-400) K/mcL Neutrophils # 11.0 H (1.6-8.9) K/mcL BMP 07/23/17 04:01 Sodium 126 L Potassium 3.6 Chloride 99 Carbon Dioxide 21 L BUN 14 Creatinine 0.48 L Glucose 120 H Calcium 8.0 L - ABG Interpretation ABG results: PT/INR, D-dimer PT 14.3 Seconds (9.4-12.1) H 07/22/17 06:41 Consult Discharge Plan - Plan Referrals: Salazar Montano MD [Partnered Physician] - Poonam Hermosillo MD [Primary Care Provider] -
[2017-07-23] MEDS ORDERED: Ziprasidone injection 20 MG/ML VIAL IM ONE (16:46)
--- NOTE | 2017-07-23 16:46 | Nephrology Consult Note ---
Date of Encounter: 07/24/17 Time of Encounter: 16:38 Assessment and Plan (1) Hyponatremia Current Visit: Yes Status: Acute Possibly related to diuresis. No other clear indications at this time. Change carrier solution for IV medications to 0.9. Fluid restriction to 1.5 liters daily. Consider saline if sodium continues to decline. Check labs for other causes of hyponatremia. (2) Anemia due to acute blood loss Current Visit: Yes Status: Acute Monitor hemoglobin. Check iron stores, vitamin b12 and folate. If progressive blood loss transfuse as needed. (3) Delirium Current Visit: Yes Status: Acute Patient with abrupt delirium of unclear etiology. WBC elevated. Worsening hyponatremia. acidosis of unclear significance (4) Renal cyst, right Current Visit: Yes Status: Acute s/p nephrectomy. Per urology. (5) Seizure Current Visit: Yes Status: Acute By history. History of Present Illness - Reason for Consult Consult date: 07/23/17 hyponatremia - Chief Complaint Patient with hyponatremia. - History of Present Illness Patient in for nephrectomy secondary to an abnormal renal cyst. Her post op course was complicated by hyponatremia and subsequent change in personality. At the time of my evaluation she was agitated and refusing to cooperate with the history or with the exam. History was obtained from the medical record. Past Med Surg Social Fam HX - Past Medical History Medical history: hyperlipidemia, hypertension, seizures Psychiatric history: anxiety - Past Surgical History Surgical History: cholecystectomy, hysterectomy - Social History Smoking Status: Never smoker Smokeless Tobacco Status: No Alcohol use: none Drug use: none Medications and Allergies Alendronate Sodium [Fosamax] 70 mg PO MO 07/19/17 [History] Amlodipine Besylate [Amlodipine Besylate] 10 mg PO DAILY 07/19/17 [History] Calcium Carbonate [Calcium] 500 mg PO BID 07/19/17 [History] Ergocalciferol (VITAMIN D2) [Vitamin D2] 50,000 unit PO QMONTH 07/19/17 [History ] Gabapentin [Neurontin] 300 mg PO 5XD 07/19/17 [History] Losartan Potassium [Cozaar] 100 mg PO DAILY 07/19/17 [History] Metoprolol Succinate [Toprol Xl] 50 mg PO DAILY 07/19/17 [History] PHENobarbital [Phenobarbital] 64.8 mg PO HS 07/19/17 [History] Pantoprazole Sodium [Protonix] 40 mg PO QAM 07/19/17 [History] lamoTRIgine [Lamictal] 100 mg PO BID 07/19/17 [History] 3 Allergy/AdvReac Type Severity Reaction Status Date / Time alprazolam [From Xanax] AdvReac Dizziness Verified 07/19/17 10:02 citalopram AdvReac Dizziness Verified 07/19/17 10:02 divalproex sodium AdvReac Dizziness Verified 07/19/17 10:02 [From Depakote] Paroxetine [From Paxil] AdvReac Dizziness Verified 07/19/17 10:02 Review of Systems ROS unobtainable: due to mental status Exam - Vital Signs Vital signs: Initial Vital Signs Temp Pulse Resp BP Pulse Ox 97.8 F 67 18 169/83 96 07/19/17 10:33 07/19/17 10:33 07/19/17 10:33 07/19/17 10:33 07/19/17 10:33 Vital Signs - Last 8 Hours Temp Pulse Resp BP Pulse Ox 07/23/17 16:00 98.9 F 89 18 116/79 94 07/23/17 14:00 91 18 141/69 93 07/23/17 10:50 98.5 F 88 18 110/73 97 Intake and Output 07/23/17 07/23/17 07/23/17 07:59 15:59 23:59 Intake Total 350 / 350 0 / 0 0 / 0 Output Total 760 / 760 20 / 20 Balance -410 / -410 0 / 0 -20 / -20 Intake: Oral 350 / 350 0 / 0 0 / 0 Output: Urine 700 / 700 0 / 0 Wound Drainage 60 / 60 20 / 20 Lower Abdomen 60 / 60 20 / 20 Other: Meal Refused Breakfast Patient refused Lunch Percent of Meal Consumed 0% Weight 90 kg Blood Glucose* 116 123 Patient Weight 07/23/17 23:59 Weight 90 kg - General Appearance General appearance: well-developed, well-nourished Exam: Patient is agitated, combative and refuses evaluation. Cardiology: regular rate Neurologic: disoriented Psychiatric: agitated Results - Lab Results 07/24/17 04:04 07/23/17 17:27 Most recent lab results Calcium 8.0 mg/dL (8.6-10.3) L 07/23/17 04:01 Phosphorus 1.6 mg/dL (2.7-4.5) L 07/22/17 06:41 Magnesium 1.6 mg/dL (1.6-2.6) 07/22/17 06:41 Consult Discharge Plan - Plan Referrals: Salazar Montano MD [Partnered Physician] - Poonam Hermosillo MD [Primary Care Provider] -
[2017-07-23 17:42] LABS: Hematocrit 25.1 % (35.3-44.9); Hemoglobin 8.8 g/dL (11.5-15.4); Mean Corpuscular HGB Conc 35.1 g/dL (31.6-35.5); Mean Corpuscular Hemoglobin 29.3 pg (28.0-33.3); Mean Corpuscular Volume 83.7 fL (83.0-100.0); Mean Platelet Volume 10.5 fL (9.4-12.4); Platelet Count 235 K/mcL (140-400); Red Cell Distribution Width 15.6 % (11.5-14.5)
[2017-07-23 18:02] LABS: Magnesium 1.7 mg/dL (1.6-2.6); Phosphorous 1.5 mg/dL (2.7-4.5)
[2017-07-23 18:03] LABS: % Iron Saturation 4 % (15-50); Ferritin 201 ng/ml (10-120); Iron 11 mcg/dL (50-170); Transferrin 195 mg/dL (203-362)
[2017-07-23 18:04] LABS: BUN/Creatinine Ratio 33 (6-26); Blood Urea Nitrogen 18 mg/dL (8-23); Calcium 8.2 mg/dL (8.6-10.3); Carbon Dioxide 21 mEq/L (23-29); Chloride 100 mEq/L (98-107); Glucose 121 mg/dL (70-105); Osmolality,Calculated 269 (280-300); Potassium 3.7 mEq/L (3.5-5.1); Sodium 128 mEq/L (136-145); eGFR For African Americans > 60 (> 60); eGFR For Non-African Americans > 60 (> 60)
[2017-07-23 18:17] LABS: Thyroid Stimulating Hormone 0.556 mcIU/mL (0.340-5.600)
[2017-07-23 18:28] LABS: Folate 9.3 ng/mL (3.0-16.0)
[2017-07-23] MEDS ORDERED: OLANZapine 5 MG TAB.RAPDIS PO PRN (19:03)
[2017-07-23 19:31] LABS: Bilirubin,Urine Negative (Negative); Blood,Urine Negative (Negative); Clarity,Urine Clear (Clear); Color,Urine Yellow (Yellow); Glucose,Urine (UA) Normal (Normal); Ketones,Urine Negative (Negative); Leukocyte Esterase,Urine Small (Negative); Nitrite,Urine Negative (Negative); Protein,Urine Trace mg/dL (Neg-Trace); Urobilinogen,Urine Normal (Normal)
[2017-07-23 19:38] LABS: Bacteria,Urine None Seen per hpf (None-Few); Hyaline Casts,Urine None Seen per lpf (None-Few); Squamous Epithelial Cell,Urine Many per lpf (None-Few)
[2017-07-23] MEDS: PHENobarbital 32.4 MG TABLET PO SCH (20:33)
[2017-07-24 04:53] LABS: Basophils % 0.2 %; Eosinophils % 0.1 %; Hematocrit 24.8 % (35.3-44.9); Hemoglobin 8.5 g/dL (11.5-15.4); Immature Granulocytes % 1.4 % (0-4); Lymphocytes # 1.2 K/mcL (0.6-4.6); Lymphocytes % 10.3 %; Mean Corpuscular HGB Conc 34.3 g/dL (31.6-35.5); Mean Corpuscular Hemoglobin 28.9 pg (28.0-33.3); Mean Corpuscular Volume 84.4 fL (83.0-100.0); Mean Platelet Volume 10.8 fL (9.4-12.4); Monocytes # 1.2 K/mcL (0.0-1.3); Monocytes % 10.6 %; Platelet Count 234 K/mcL (140-400); Red Blood Count 2.94 M/mcL (3.82-4.97); Red Cell Distribution Width 15.6 % (11.5-14.5); Segmented Neutrophils % 77.4 %
[2017-07-24 05:10] LABS: Alanine Aminotransferase 9 Units/L (7-52); Alkaline Phosphatase 117 Units/L (34-104); Aspartate Amino Transferase 16 Units/L (13-39); BUN/Creatinine Ratio 35 (6-26); Bilirubin,Direct 0.3 mg/dL (0.0-0.2); Bilirubin,Indirect 0.3 mg/dL (0.0-1.2); Bilirubin,Total 0.6 mg/dL (0.3-1.0); Blood Urea Nitrogen 14 mg/dL (8-23); Calcium 8.2 mg/dL (8.6-10.3); Carbon Dioxide 18 mEq/L (23-29); Chloride 104 mEq/L (98-107); Globulin 3.1 g/dL (2.4-3.5); Glucose 113 mg/dL (70-105); Magnesium 1.9 mg/dL (1.6-2.6); Osmolality,Calculated 277 (280-300); Phosphorous 1.6 mg/dL (2.7-4.5); Potassium 3.5 mEq/L (3.5-5.1); Sodium 133 mEq/L (136-145); Total Protein 6.1 g/dL (6.4-8.9); eGFR For African Americans > 60 (> 60); eGFR For Non-African Americans > 60 (> 60)
[2017-07-24 06:19] LABS: VBG Ionized Calcium 1.07 mmol/L (1.15-1.35)
--- NOTE | 2017-07-24 07:19 | Urology Progress Note ---
Date of Encounter: 07/24/17 Time of Encounter: 07:17 - Assessment and Plan (1) Delirium Current Visit: Yes Status: Acute Assessment and plan: appreciate hospitalists recs. will follow (2) Renal cyst, right Current Visit: Yes Status: Acute Assessment and plan: doing OK from standpoint. drain removed - output had decreased and it removes a stimulus that could be contributing to her delirium. hgb drifted down but no signs acute bleed. Progress Note Narrative: no improvement in mental status overnight. still acting out and requires sitter. Objective Initial Vital Signs Temp Pulse Resp BP Pulse Ox 97.8 F 67 18 169/83 96 07/19/17 10:33 07/19/17 10:33 07/19/17 10:33 07/19/17 10:33 07/19/17 10:33 - Additional Exam abd soft. drain scant amount nd rmeoved pt yelling at myself and aide. not oriented. - Labs 07/24/17 04:04 07/24/17 04:04 Diabetes panel 07/23/17 07/24/17 Range/Units 17:27 04:04 Sodium 128 L 133 L (136-145) mEq/L Potassium 3.7 3.5 (3.5-5.1) mEq/L Chloride 100 104 (98-107) mEq/L Carbon Dioxide 21 L 18 L (23-29) mEq/L BUN 18 14 (8-23) mg/dL Creatinine 0.55 L 0.40 L (0.60-1.20) mg/dL Glucose 121 H 113 H (70-105) mg/dL Calcium 8.2 L 8.2 L (8.6-10.3) mg/dL AST 16 (13-39) Units/L ALT 9 (7-52) Units/L Alkaline Phosphatase 117 H (34-104) Units/L Albumin 3.0 L (3.5-5.7) g/dL Thyroid panel 07/23/17 Range/Units 17:27 TSH 0.556 (0.340-5.600) mcIU/mL Calcium panel 07/23/17 07/23/17 07/24/17 Range/Units 17:27 17:27 04:04 Calcium 8.2 L 8.2 L (8.6-10.3) mg/dL Phosphorus 1.5 L 1.6 L (2.7-4.5) mg/dL Albumin 3.0 L (3.5-5.7) g/dL Pituitary panel 07/23/17 07/24/17 Range/Units 17:27 04:04 Sodium 128 L 133 L (136-145) mEq/L Potassium 3.7 3.5 (3.5-5.1) mEq/L Chloride 100 104 (98-107) mEq/L Carbon Dioxide 21 L 18 L (23-29) mEq/L BUN 18 14 (8-23) mg/dL Creatinine 0.55 L 0.40 L (0.60-1.20) mg/dL Glucose 121 H 113 H (70-105) mg/dL Calcium 8.2 L 8.2 L (8.6-10.3) mg/dL TSH 0.556 (0.340-5.600) mcIU/mL Adrenal panel 07/23/17 07/24/17 Range/Units 17:27 04:04 Sodium 128 L 133 L (136-145) mEq/L Potassium 3.7 3.5 (3.5-5.1) mEq/L Chloride 100 104 (98-107) mEq/L Carbon Dioxide 21 L 18 L (23-29) mEq/L BUN 18 14 (8-23) mg/dL Creatinine 0.55 L 0.40 L (0.60-1.20) mg/dL Glucose 121 H 113 H (70-105) mg/dL Calcium 8.2 L 8.2 L (8.6-10.3) mg/dL Total Bilirubin 0.6 (0.3-1.0) mg/dL AST 16 (13-39) Units/L ALT 9 (7-52) Units/L Alkaline Phosphatase 117 H (34-104) Units/L Albumin 3.0 L (3.5-5.7) g/dL - VTE Documentation of Mechanical Device: Intermittent pneumatic compression device Consult Discharge Plan - Plan Referrals: Salazar Montano MD [Partnered Physician] - Poonam Hermosillo MD [Primary Care Provider] -
--- NOTE | 2017-07-24 08:44 | Internal Med Progress Note ---
Date of Encounter: 07/24/17 Time of Encounter: 08:41 - Assessment and plan (1) Delirium Current Visit: Yes Status: Acute Assessment and plan: Unsure of patient's baseline. Multiple possible etiologies for this, include infection, bladder distention (1,000 ml urine in bladder today) A chest x-ray and urinalysis were unremarkable. WBC improving. Showed urinary retention. Could have a undiagnosed dementia possibility Could be hyponatremia Could be changes in enviornment - Straight cath, avoid Lee as could worsen agitation - Continue Rocephin emperically and monitor for signs of infection. Currently no signs. - Continuous re-direction - Sodium management per Nephrology - Continue Zyprexa, sitter, restraint prn. (2) Anemia due to acute blood loss Current Visit: Yes Status: Acute Assessment and plan: Hemoglobin and vitals stable. (3) Hyponatremia Current Visit: Yes Status: Acute Assessment and plan: Improving, management per Nephrology. (4) Renal cyst, right Current Visit: Yes Status: Acute Assessment and plan: Status-post right robotic partial nephrectomy. Management per primary. (5) Seizure Current Visit: Yes Status: Acute - Time Spent With Patient Total time spent is greater than 50% in coordination of care (as documented) at patient's floor/unit and/or counseling patient: - Subjective Interval history: Patient is still combative but not as much today. Still says verbally inappropriate things to nursing. She denies any pain, n/v, fevers/chills though history is unerliable. She was noted on bladder scan to have 1000 ml in bladder. - Constitutional Vitals: Temp Pulse Resp BP Pulse Ox 99.3 F 98 22 146/73 94 07/24/17 03:23 07/24/17 03:23 07/24/17 03:23 07/24/17 03:23 07/24/17 03:23 General appearance: Present: A&O X 1, severe distress Exam: CONSTITUTIONAL: Patient appears as an age appropriate female well developed, in no acute distress. EYES Clear sclerae, bilateral pupils are equal, reactive to light and accommodation. Extraocular movements are intact RESPIRATORY: No accessory muscle use, bilateral clear to auscultation, no wheezing, no crackles/rales. CARDIOVASCULAR: Regular heart rate, normal S1 and S2, no murmurs GASTROINTESTINAL: bowel sounds present, soft, no tenderness. No hepatosplenomegaly. No bilateral CVA tenderness MUSCULOSKELETAL: Joints in normal range of motion, no clubbing, no edema, no cyanosis. Bilateral peripheral pulses 2+ NEUROLOGIC: CN II to XII are grossly intact, no focal neurological deficit. Deep tendon reflexes 2+ bilaterally. Normal light touch sensation to upper and lower extremity PSYCHIATRIC: Oriented x1, agitated. No hallucinations or delusions. SKIN: Skin warm and dry, no rashes, no open wound. Internal Medicine: Result - Labs CBC & Chem 7: 07/24/17 04:04 07/24/17 04:04 Labs: Short CBC 07/23/17 07/24/17 Range/Units 17:27 04:04 WBC 13.1 H 11.6 H (4.3-11.1) K/mcL Hgb 8.8 L 8.5 L (11.5-15.4) g/dL Hct 25.1 L 24.8 L (35.3-44.9) % Plt Count 235 234 (140-400) K/mcL Neutrophils # 9.0 H (1.6-8.9) K/mcL BMP 07/23/17 07/24/17 17:27 04:04 Sodium 128 L 133 L Potassium 3.7 3.5 Chloride 100 104 Carbon Dioxide 21 L 18 L BUN 18 14 Creatinine 0.55 L 0.40 L Glucose 121 H 113 H Calcium 8.2 L 8.2 L Liver Function 07/24/17 Range/Units 04:04 Total Bilirubin 0.6 (0.3-1.0) mg/dL Direct Bilirubin 0.3 H (0.0-0.2) mg/dL AST 16 (13-39) Units/L ALT 9 (7-52) Units/L Alkaline Phosphatase 117 H (34-104) Units/L Albumin 3.0 L (3.5-5.7) g/dL Urine 07/23/17 Range/Units 19:00 Urine Color Yellow (Yellow) Urine Clarity Clear (Clear) Urine pH 6.0 (5.0-8.0) pH Units Ur Specific Villanueva 1.020 (1.010-1.025) Urine Protein Trace (Neg-Trace) mg/dL Urine Glucose (UA) Normal (Normal) mg/dL - ABG Interpretation ABG results: PT/INR, D-dimer PT 14.3 Seconds (9.4-12.1) H 07/22/17 06:41 - VTE Documentation of Mechanical Device: Intermittent pneumatic compression device Consult Discharge Plan - Plan Referrals: Salazar Montano MD [Partnered Physician] - Poonam Hermosillo MD [Primary Care Provider] -
[2017-07-24] MEDS ORDERED: *HR* LORazepam 2 MG/ML VIAL IVP STA (10:14)
[2017-07-24] MEDS: amLODIPine 5 MG TABLET PO SCH (10:51)
[2017-07-24] MEDS: cefTRIAXone 1,000 MG in Water for inj. (sterile) 20 ML 10 ML IVP SCH (10:52)
[2017-07-24] MEDS: Metoprolol XL (24 HR) Succ 50 MG TAB.ER.24H PO SCH (10:52)
[2017-07-24] MEDS: lamoTRIgine 100 MG TABLET PO SCH ×2 (10:52→20:17)
[2017-07-24] MEDS: Acetaminophen 325 MG TABLET PO PRN (13:00)
--- NOTE | 2017-07-24 13:47 | Nephrology Progress Note ---
Date of Encounter: 07/24/17 Time of Encounter: 13:45 - Assessment and Plan (1) Hyponatremia Current Visit: Yes Status: Acute Possibly related to diuresis. No other clear indications at this time. Change carrier solution for IV medications to 0.9. Fluid restriction to 1.5 liters daily. Consider saline if sodium continues to decline. TSH normal. Improving. (2) Anemia due to acute blood loss Current Visit: Yes Status: Acute Iron saturation is low. Vitamin b12 and folate are normal. Start iron replacement. (3) Delirium Current Visit: Yes Status: Acute Improving. ?related to urinary obstruction. (4) Renal cyst, right Current Visit: Yes Status: Acute Per urology. (5) Seizure Current Visit: Yes Status: Acute Subjective Principal diagnosis: hyponatremia Interval history: Patient is more cooperative and interactive today. She was seen with her steamtable worker and was appropriate with her interaction. Objective - Vital Signs Vital signs: Vital Signs Temp Pulse Resp BP Pulse Ox 07/24/17 10:20 138 36 163/81 97 07/24/17 03:23 99.3 F 98 22 146/73 94 07/23/17 22:00 154/71 07/23/17 21:13 98.9 F 89 28 176/83 93 07/23/17 16:00 98.9 F 89 18 116/79 94 07/23/17 14:00 91 18 141/69 93 Intake and Output 07/23/17 07/24/17 07/24/17 23:59 07:59 15:59 Intake Total 200 / 200 100 / 100 Output Total 20 / 20 120 / 120 975 / 975 Balance 180 / 180 -20 / -20 -975 / -975 Intake: IV Fluids 200 / 200 100 / 100 Potassium Chloride 10 mEq/100mL 200 / 200 100 / 100 10 meq In 100 ml @ 100 mls/hr IVPB Q1H [facility] Rx#:[id number] Oral 0 / 0 0 / 0 Output: Urine 0 / 0 Straight Cath 975 / 975 Wound Drainage 20 / 20 120 / 120 Lower Abdomen 20 / 20 120 / 120 Other: Meal Dinner Percent of Meal Consumed 0% # Voids 1 2 Weight 88.6 kg Blood Glucose* 115 Patient Weight 07/24/17 23:59 Weight 88.6 kg - General Appearance General appearance: Present: well-developed, well-nourished, appears started age EENT: Present: ATNC Cardiology: Present: regular rate Integumentary: Present: warm and dry Neurologic: Present: disoriented Psychiatric: Present: mood/affect appropriate - Lab 07/24/17 04:04 07/24/17 04:04 Most recent lab results Calcium 8.2 mg/dL (8.6-10.3) L 07/24/17 04:04 Phosphorus 1.6 mg/dL (2.7-4.5) L 07/24/17 04:04 Magnesium 1.9 mg/dL (1.6-2.6) 07/24/17 04:04 Urine Sodium 59.6 mEq/L 07/23/17 19:00 - VTE Documentation of Mechanical Device: Intermittent pneumatic compression device Consult Discharge Plan - Plan Referrals: Salazar Montano MD [Partnered Physician] - Poonam Hermosillo MD [Primary Care Provider] -
[2017-07-24] MEDS: PHENobarbital 65 MG/ML VIAL IVP SCH (20:17)
[2017-07-25 05:19] LABS: Basophils % 0.2 %; Eosinophils # 0.1 K/mcL (0.0-0.6); Eosinophils % 0.4 %; Hematocrit 27.9 % (35.3-44.9); Hemoglobin 9.5 g/dL (11.5-15.4); Immature Granulocytes % 0.7 % (0-4); Lymphocytes # 1.7 K/mcL (0.6-4.6); Lymphocytes % 12.5 %; Mean Corpuscular HGB Conc 34.1 g/dL (31.6-35.5); Mean Corpuscular Hemoglobin 28.4 pg (28.0-33.3); Mean Corpuscular Volume 83.5 fL (83.0-100.0); Mean Platelet Volume 11.3 fL (9.4-12.4); Monocytes # 1.5 K/mcL (0.0-1.3); Monocytes % 10.6 %; Neutrophils # 10.5 K/mcL (1.6-8.9); Platelet Count 372 K/mcL (140-400); Red Blood Count 3.34 M/mcL (3.82-4.97); Red Cell Distribution Width 15.5 % (11.5-14.5); Segmented Neutrophils % 75.6 %
[2017-07-25 05:36] LABS: BUN/Creatinine Ratio 31 (6-26); Blood Urea Nitrogen 15 mg/dL (8-23); Calcium 8.8 mg/dL (8.6-10.3); Carbon Dioxide 21 mEq/L (23-29); Chloride 104 mEq/L (98-107); Glucose 121 mg/dL (70-105); Osmolality,Calculated 282 (280-300); Potassium 3.1 mEq/L (3.5-5.1); Sodium 135 mEq/L (136-145); eGFR For African Americans > 60 (> 60); eGFR For Non-African Americans > 60 (> 60)
--- NOTE | 2017-07-25 07:21 | Urology Progress Note ---
Date of Encounter: 07/25/17 Time of Encounter: 07:19 - Assessment and Plan (1) Delirium Current Visit: Yes Status: Acute (2) Renal cyst, right Current Visit: Yes Status: Acute Assessment and plan: appreciate all other service recs. delirium and confusion still an issue but slowly improving. will need to continue bladder scans and intermittent cath if unable to adequetely urinate. incomplete emptying likely multifactoreal - delirium, positional (in retraints), diuresis, etc. will also try to provide more frequent bathroom use. WBC still at 13,000 (small increase from yesterday) . no obvious sign of infection and still on rocephin. start to consider social service coordinator involvement for ECF placement if delirium does not improvement greatly. Progress Note Narrative: pt calmer today. still with delirium but not as severe. only acute issue is bladder PVR>1000cc straight cath yesterday. Objective Initial Vital Signs Temp Pulse Resp BP Pulse Ox 97.8 F 67 18 169/83 96 07/19/17 10:33 07/19/17 10:33 07/19/17 10:33 07/19/17 10:33 07/19/17 10:33 - General physical appearance Present: no distress - Abdomen Present: soft - Additional Exam appears calmer and less agitated but still with inappropriate conversation and confusion. - Labs 07/25/17 03:53 07/25/17 03:53 Diabetes panel 07/25/17 Range/Units 03:53 Sodium 135 L (136-145) mEq/L Potassium 3.1 L (3.5-5.1) mEq/L Chloride 104 (98-107) mEq/L Carbon Dioxide 21 L (23-29) mEq/L BUN 15 (8-23) mg/dL Creatinine 0.49 L (0.60-1.20) mg/dL Glucose 121 H (70-105) mg/dL Calcium 8.8 (8.6-10.3) mg/dL Calcium panel 07/25/17 Range/Units 03:53 Calcium 8.8 (8.6-10.3) mg/dL Pituitary panel 07/25/17 Range/Units 03:53 Sodium 135 L (136-145) mEq/L Potassium 3.1 L (3.5-5.1) mEq/L Chloride 104 (98-107) mEq/L Carbon Dioxide 21 L (23-29) mEq/L BUN 15 (8-23) mg/dL Creatinine 0.49 L (0.60-1.20) mg/dL Glucose 121 H (70-105) mg/dL Calcium 8.8 (8.6-10.3) mg/dL Adrenal panel 07/25/17 Range/Units 03:53 Sodium 135 L (136-145) mEq/L Potassium 3.1 L (3.5-5.1) mEq/L Chloride 104 (98-107) mEq/L Carbon Dioxide 21 L (23-29) mEq/L BUN 15 (8-23) mg/dL Creatinine 0.49 L (0.60-1.20) mg/dL Glucose 121 H (70-105) mg/dL Calcium 8.8 (8.6-10.3) mg/dL - VTE Documentation of Mechanical Device: Intermittent pneumatic compression device Consult Discharge Plan - Plan Referrals: Salazar Montano MD [Partnered Physician] - Poonam Hermosillo MD [Primary Care Provider] -
[2017-07-25] MEDS: cefTRIAXone 1,000 MG in Water for inj. (sterile) 20 ML 10 ML IVP SCH (08:08)
[2017-07-25] MEDS: amLODIPine 5 MG TABLET PO SCH (08:09)
[2017-07-25] MEDS: Metoprolol XL (24 HR) Succ 50 MG TAB.ER.24H PO SCH (08:09)
[2017-07-25] MEDS: lamoTRIgine 100 MG TABLET PO SCH ×2 (08:09→20:34)
[2017-07-25] MEDS ORDERED: Potassium Phosphate 44 MEQ in 0.9 % Sodium Chloride 250 ML IVPB ONE (09:22)
--- NOTE | 2017-07-25 09:23 | Nephrology Progress Note ---
Date of Encounter: 07/25/17 Time of Encounter: 09:18 - Assessment and Plan (1) Hyponatremia Current Visit: Yes Status: Acute Possibly related to diuresis. No other clear indications at this time. Change carrier solution for IV medications to 0.9. Fluid restriction to 1.5 liters daily. Consider saline if sodium continues to decline. TSH normal. Improving. (2) Anemia due to acute blood loss Current Visit: Yes Status: Acute Iron saturation is low. Vitamin b12 and folate are normal. Started oral iron replacement. (3) Delirium Current Visit: Yes Status: Acute Improving. ?related to urinary obstruction vs hyponatremia. Patient with normal interaction this am. (4) Renal cyst, right Current Visit: Yes Status: Acute Per urology. s/p nephrectomy. (5) Hypophosphatasia Current Visit: Yes Status: Acute Phosphorus replacement ordered. (6) Seizure Current Visit: Yes Status: Acute Subjective Principal diagnosis: hyponatremia Interval history: Patient is more cooperative and interactive today. She was about to eat breakfast, but had no complaint. Objective - Vital Signs Vital signs: Vital Signs Temp Pulse Resp BP Pulse Ox 07/25/17 08:14 95 07/25/17 07:00 98.2 F 95 18 122/71 94 07/25/17 03:41 98.7 F 98 27 148/70 95 07/25/17 00:00 98.5 F 97 25 162/77 94 07/24/17 20:09 98.0 F 148 22 178/80 94 07/24/17 10:20 138 36 163/81 97 Intake and Output 07/24/17 07/25/17 07/25/17 23:59 07:59 15:59 Intake Total Output Total 625 / 625 550 / 550 Balance -625 / -625 -540 / -540 Intake: IV Fluids Rocephin 1,000 MG In Water for inj. (sterile) 10 ML @ 600 mls/ hr IVP DAILY [facility] Rx#:[id number] Oral 0 / 0 Output: Straight Cath 625 / 625 550 / 550 - General Appearance General appearance: Present: well-developed, well-nourished, appears started age EENT: Present: ATNC Neck: Present: supple Cardiology: Present: regular rate Additional Comments: Alert. Sitting in a chair eating breakfast. Psychiatric: Present: mood/affect appropriate - Lab 05/27/18 03:53 07/25/17 03:53 Most recent lab results Calcium 8.8 mg/dL (8.6-10.3) 07/25/17 03:53 Phosphorus 1.6 mg/dL (2.7-4.5) L 07/24/17 04:04 Magnesium 1.9 mg/dL (1.6-2.6) 07/24/17 04:04 Urine Sodium 59.6 mEq/L 07/23/17 19:00 - VTE Documentation of Mechanical Device: Intermittent pneumatic compression device Consult Discharge Plan - Plan Referrals: Salazar Montano MD [Partnered Physician] - Poonam Hermosillo MD [Primary Care Provider] -
[2017-07-25 12:23] LABS: VBG Ionized Calcium 1.09 mmol/L (1.15-1.35)
--- NOTE | 2017-07-25 15:49 | Internal Med Progress Note ---
Date of Encounter: 07/25/17 Time of Encounter: 11:49 - Assessment and plan (1) Delirium Current Visit: Yes Status: Acute Assessment and plan: Unsure of patient's baseline. Multiple possible etiologies for this, include pain, bladder distention/urinary retention, change in enviornment, hyponatremia Showed urinary retention. Could have a undiagnosed dementia possibility No longer needs restraints Continue Delirium precautions: - Zyprexa HS prn agitation - Continue re-direction continuous - Straight cath as needed for urinary retension - Continue Rocephin emperically and monitor for signs of infection. Currently no signs. - Sodium approaching normal limits, management per Nephrology (2) Anemia due to acute blood loss Current Visit: Yes Status: Acute Assessment and plan: Hemoglobin and vitals stable. (3) Hyponatremia Current Visit: Yes Status: Acute Assessment and plan: Improving, management per Nephrology. (4) Renal cyst, right Current Visit: Yes Status: Acute Assessment and plan: Status-post right robotic partial nephrectomy. Management per primary. (5) Seizure Current Visit: Yes Status: Acute Assessment and plan: Continue phenobarbital - Time Spent With Patient Total time spent is greater than 50% in coordination of care (as documented) at patient's floor/unit and/or counseling patient: - Subjective Interval history: Patient not combative like yesterday, she is pleasant. Seems less confused today - Constitutional Vitals: Temp Pulse Resp BP Pulse Ox 98.2 F 96 18 131/76 95 07/25/17 14:33 07/25/17 14:33 07/25/17 14:33 07/25/17 14:33 07/25/17 14:33 General appearance: Present: A&O X 1, severe distress Exam: CONSTITUTIONAL: Patient appears as an age appropriate female well developed, in no acute distress. Not agitated like yesterday exam EYES Clear sclerae, bilateral pupils are equal, reactive to light and accommodation. Extraocular movements are intact RESPIRATORY: No accessory muscle use, bilateral clear to auscultation, no wheezing, no crackles/rales. CARDIOVASCULAR: Regular heart rate, normal S1 and S2, no murmurs GASTROINTESTINAL: bowel sounds present, soft, no tenderness. No hepatosplenomegaly. No bilateral CVA tenderness MUSCULOSKELETAL: Joints in normal range of motion, no clubbing, no edema, no cyanosis. Bilateral peripheral pulses 2+ NEUROLOGIC: CN II to XII are grossly intact, no focal neurological deficit. Deep tendon reflexes 2+ bilaterally. Normal light touch sensation to upper and lower extremity PSYCHIATRIC: Oriented x1. No hallucinations or delusions. SKIN: Skin warm and dry, no rashes, no open wound. Internal Medicine: Result - Labs CBC & Chem 7: 07/25/17 03:53 07/25/17 03:53 Labs: Short CBC 07/25/17 Range/Units 03:53 WBC 13.9 H (4.3-11.1) K/mcL Hgb 9.5 L (11.5-15.4) g/dL Hct 27.9 L (35.3-44.9) % Plt Count 372 D (140-400) K/mcL Neutrophils # 10.5 H (1.6-8.9) K/mcL BMP 07/25/17 03:53 Sodium 135 L Potassium 3.1 L Chloride 104 Carbon Dioxide 21 L BUN 15 Creatinine 0.49 L Glucose 121 H Calcium 8.8 - ABG Interpretation ABG results: PT/INR, D-dimer PT 14.3 Seconds (9.4-12.1) H 07/22/17 06:41 - VTE Documentation of Mechanical Device: Intermittent pneumatic compression device Consult Discharge Plan - Plan Referrals: Salazar Montano MD [Partnered Physician] - Poonam Hermosillo MD [Primary Care Provider] -
[2017-07-25] MEDS: PHENobarbital 65 MG/ML VIAL IVP SCH (17:41)
[2017-07-26 05:48] LABS: Basophils % 0.3 %; Eosinophils # 0.2 K/mcL (0.0-0.6); Hematocrit 25.9 % (35.3-44.9); Hemoglobin 8.4 g/dL (11.5-15.4); Immature Granulocytes % 0.5 % (0-4); Lymphocytes # 2.4 K/mcL (0.6-4.6); Lymphocytes % 24.3 %; Mean Corpuscular HGB Conc 32.4 g/dL (31.6-35.5); Mean Corpuscular Hemoglobin 27.6 pg (28.0-33.3); Mean Corpuscular Volume 85.2 fL (83.0-100.0); Mean Platelet Volume 11.2 fL (9.4-12.4); Monocytes # 1.1 K/mcL (0.0-1.3); Monocytes % 10.8 %; Neutrophils # 6.2 K/mcL (1.6-8.9); Platelet Count 326 K/mcL (140-400); Red Blood Count 3.04 M/mcL (3.82-4.97); Red Cell Distribution Width 15.9 % (11.5-14.5); Segmented Neutrophils % 62.1 %
[2017-07-26 06:07] LABS: Magnesium 1.7 mg/dL (1.6-2.6); Phosphorous 3.6 mg/dL (2.7-4.5)
[2017-07-26 06:08] LABS: BUN/Creatinine Ratio 40 (6-26); Blood Urea Nitrogen 23 mg/dL (8-23); Calcium 8.6 mg/dL (8.6-10.3); Carbon Dioxide 20 mEq/L (23-29); Chloride 108 mEq/L (98-107); Glucose 91 mg/dL (70-105); Osmolality,Calculated 287 (280-300); Potassium 3.5 mEq/L (3.5-5.1); Sodium 137 mEq/L (136-145); eGFR For African Americans > 60 (> 60); eGFR For Non-African Americans > 60 (> 60)
--- NOTE | 2017-07-26 07:58 | Urology Progress Note ---
Date of Encounter: 07/26/17 Time of Encounter: 07:56 - Assessment and Plan (1) Delirium Current Visit: Yes Status: Acute Assessment and plan: improved but I do not feel she is stable for discharge to home without 24 hour family assistance. she has bee approved by an ECF. safe for discharge to ECF. (2) Renal cyst, right Current Visit: Yes Status: Acute Progress Note Narrative: delirium is improving. pt asking to go home. denies pain. nurses report no further need for straight cath. Objective Initial Vital Signs Temp Pulse Resp BP Pulse Ox 97.8 F 67 18 169/83 96 07/19/17 10:33 07/19/17 10:33 07/19/17 10:33 07/19/17 10:33 07/19/17 10:33 - General physical appearance Present: no distress - Psychiatric Present: oriented to person. Absent: oriented to place - Additional Exam more appropriate conversation. wants to go home. does not know where she is. - Labs 07/26/17 03:34 07/26/17 03:34 Diabetes panel 07/26/17 Range/Units 03:34 Sodium 137 (136-145) mEq/L Potassium 3.5 (3.5-5.1) mEq/L Chloride 108 H (98-107) mEq/L Carbon Dioxide 20 L (23-29) mEq/L BUN 23 (8-23) mg/dL Creatinine 0.58 L (0.60-1.20) mg/dL Glucose 91 (70-105) mg/dL Calcium 8.6 (8.6-10.3) mg/dL Calcium panel 07/26/17 07/26/17 Range/Units 03:34 03:34 Calcium 8.6 (8.6-10.3) mg/dL Phosphorus 3.6 (2.7-4.5) mg/dL Pituitary panel 07/26/17 Range/Units 03:34 Sodium 137 (136-145) mEq/L Potassium 3.5 (3.5-5.1) mEq/L Chloride 108 H (98-107) mEq/L Carbon Dioxide 20 L (23-29) mEq/L BUN 23 (8-23) mg/dL Creatinine 0.58 L (0.60-1.20) mg/dL Glucose 91 (70-105) mg/dL Calcium 8.6 (8.6-10.3) mg/dL Adrenal panel 07/26/17 Range/Units 03:34 Sodium 137 (136-145) mEq/L Potassium 3.5 (3.5-5.1) mEq/L Chloride 108 H (98-107) mEq/L Carbon Dioxide 20 L (23-29) mEq/L BUN 23 (8-23) mg/dL Creatinine 0.58 L (0.60-1.20) mg/dL Glucose 91 (70-105) mg/dL Calcium 8.6 (8.6-10.3) mg/dL - VTE Documentation of Mechanical Device: Intermittent pneumatic compression device Consult Discharge Plan - Plan Referrals: Salazar Montano MD [Partnered Physician] - Poonam Hermosillo MD [Primary Care Provider] -
--- NOTE | 2017-07-26 08:05 | Physician Discharge Referral ---
ExtendedCare Referral Info Transfer To: [facility] Provider in Charge: riaida Andrews MD Provider in Charge after Transfer: PCP - Diagnosis (1) Delirium Priority: Secondary Status: Resolved (2) Renal cyst, right Priority: Primary Status: Resolved Expected Duration of Placement: undetermined. will depend of complete resolution of confusion Prognosis: Good Aware of Diagnosis: Family Aware of Prognosis: Family - Transfer Medications Prescriptions: Cefdinir [Omnicef] 300 mg PO BID #14 capsule Home Medications: Alendronate Sodium [Fosamax] 70 mg PO MO 07/19/17 [History] Amlodipine Besylate 10 mg PO DAILY 07/19/17 [History] Calcium Carbonate [Calcium] 500 mg PO BID 07/19/17 [History] Ergocalciferol (VITAMIN D2) [Vitamin D2] 50,000 unit PO QMONTH 07/19/17 [History ] Gabapentin [Neurontin] 300 mg PO 5XD 07/19/17 [History] Losartan Potassium [Cozaar] 100 mg PO DAILY 07/19/17 [History] Metoprolol Succinate [Toprol Xl] 50 mg PO DAILY 07/19/17 [History] PHENobarbital [Phenobarbital] 64.8 mg PO HS 07/19/17 [History] Pantoprazole Sodium [Protonix] 40 mg PO QAM 07/19/17 [History] lamoTRIgine [Lamictal] 100 mg PO BID 07/19/17 [History] Acetaminophen [Tylenol] 650 mg PO Q6HR PRN tablet 07/26/17 [Rx] Cefdinir [Omnicef] 300 mg PO BID #14 capsule 07/26/17 [Rx] Docusate [Colace] 100 mg PO BID capsule 07/26/17 [Rx] Ferrous Sulfate 325 mg PO BIDWM tablet 07/26/17 [Rx] Lidocaine Patch [Lidoderm 5% patch] 1 each TP DAILY adh..patch 07/26/17 [Rx] OLANZapine [Zyprexa Zydis] 5 mg PO HS PRN tab.rapdis 07/26/17 [Rx] Potassium Chloride 20 meq PO BID tab.er.prt 07/26/17 [Rx] Allergies/Adverse Reactions: 3 Allergy/AdvReac Type Severity Reaction Status Date / Time alprazolam [From Xanax] AdvReac Dizziness Verified 07/19/17 10:02 citalopram AdvReac Dizziness Verified 07/19/17 10:02 divalproex sodium AdvReac Dizziness Verified 07/19/17 10:02 [From Depakote] Paroxetine [From Paxil] AdvReac Dizziness Verified 07/19/17 10:02 - Respiratory Orders None Smoking Cessation: Smoking cessation has been advised. For more information, call the [place] Tobacco Quit Line at 5-724-UUGK-NOW. - Advance Directives Code Status: Full Code - Mobility Orders Ambulate (with assistance.) - Rehabiliation Orders Rehab Potential: Good Rehab Orders: Evaluation for Physical Therapy, Evaluation for Occupational Therapy - Diet Orders Regular CERTIFICATION: I certify that the transfer of the above named patient to an Extended Care Facility is necessary for the continuing treatment of the diagnosis listed. The above information is true and accurate reflection of patient's current condition. Confidential - Redisclosure prohibited without a patient's written consent.
--- NOTE | 2017-07-26 08:08 | Discharge Summary ---
Orders not resulted at time of discharge: Pending orders 07/19/17 Red Blood Cells [BBK] Stat 07/27/17 04:00 BMP [Basic Metabolic Panel] AM 0400 Complete Blood Count [HEME] AM 0400 Date of Encounter: 07/26/17 Time of Encounter: 08:08 - Discharge Diagnosis (1) Delirium Priority: Secondary Status: Resolved (2) Renal cyst, right Priority: Primary Status: Resolved - Hospital Course Hospital course: Ms. Lopez is a 71 year old female POD#7 robotic partial nephrectomy for a cystic renal cell carcinoma. For the first 2-3 days there were no acute postsurgical issues. She did have some increased JOHN output which was determined to be on concerning. The JOHN was eventually removed. She did have hypo-atrium medial that has resolved. Appreciate nephrology consult. Most significant postoperative issue was delirium occurred on postop day #4. It has gradually approved improved. She is still not oriented to place but having much more appropriate conversations and is no longer combative. She had an issue of urinary retention which was likely secondary to being restrained to the bed. resolved now that she is no longer restrained. pt wants to go home but I do not feel she is safe without 24 hour care from family which is not available. - Time Spent with Patient Total time spent providing and/or coordinating discharge services: Greater than 30 minutes Labs on day of discharge: Labs from last 24 hours 07/26/17 07/26/17 07/26/17 03:34 03:34 03:34 WBC 9.9 RBC 3.04 L Hgb 8.4 L Hct 25.9 L MCV 85.2 MCH 27.6 L MCHC 32.4 RDW 15.9 H Plt Count 326 MPV 11.2 Immature Gran % 0.5 Seg Neutrophils % 62.1 Lymphocytes % 24.3 Monocytes % 10.8 Eosinophils % 2.0 Basophils % 0.3 Neutrophils # 6.2 Lymphocytes # 2.4 Monocytes # 1.1 Eosinophils # 0.2 Basophils # 0.0 Sodium 137 Potassium 3.5 Chloride 108 H Carbon Dioxide 20 L BUN 23 Creatinine 0.58 L Est GFR ( Amer) > 60 Est GFR (Non-Af Amer) > 60 BUN/Creatinine Ratio 40 H Glucose 91 Calculated Osmolality 287 Calcium 8.6 Venous Ioniz Calcium Phosphorus 3.6 Magnesium 1.7 07/25/17 12:21 WBC RBC Hgb Hct MCV MCH MCHC RDW Plt Count MPV Immature Gran % Seg Neutrophils % Lymphocytes % Monocytes % Eosinophils % Basophils % Neutrophils # Lymphocytes # Monocytes # Eosinophils # Basophils # Sodium Potassium Chloride Carbon Dioxide BUN Creatinine Est GFR ( Amer) Est GFR (Non-Af Amer) BUN/Creatinine Ratio Glucose Calculated Osmolality Calcium Venous Ioniz Calcium 1.09 L Phosphorus Magnesium - Impressions ITS Impressions Chest X-Ray 07/21/17 06:49 IMPRESSION: Small bilateral pleural effusions larger on the left. Bibasilar atelectasis. Underlying left lower lobe pneumonia/airspace disease is not excluded. D/ / 07/21/2017 08:23:40 Louis Pires MD / Anabelle Goodman Interpreting Provider: Louis Pires MD Chest X-Ray 07/22/17 07:31 IMPRESSION: Small bilateral pleural effusions, left greater than right and bibasilar atelectasis. Hypoinflated lungs. D/ / Justin Kolb MD / Justin Kolb MD Interpreting Provider: Justin Kolb MD - Discharge Medications Prescriptions: Cefdinir [Omnicef] 300 mg PO BID #14 capsule Home Medications: Alendronate Sodium [Fosamax] 70 mg PO MO 07/19/17 [History] Amlodipine Besylate 10 mg PO DAILY 07/19/17 [History] Calcium Carbonate [Calcium] 500 mg PO BID 07/19/17 [History] Ergocalciferol (VITAMIN D2) [Vitamin D2] 50,000 unit PO QMONTH 07/19/17 [History ] Gabapentin [Neurontin] 300 mg PO 5XD 07/19/17 [History] Losartan Potassium [Cozaar] 100 mg PO DAILY 07/19/17 [History] Metoprolol Succinate [Toprol Xl] 50 mg PO DAILY 07/19/17 [History] PHENobarbital [Phenobarbital] 64.8 mg PO HS 07/19/17 [History] Pantoprazole Sodium [Protonix] 40 mg PO QAM 07/19/17 [History] lamoTRIgine [Lamictal] 100 mg PO BID 07/19/17 [History] Acetaminophen [Tylenol] 650 mg PO Q6HR PRN tablet 07/26/17 [Rx] Cefdinir [Omnicef] 300 mg PO BID #14 capsule 07/26/17 [Rx] Docusate [Colace] 100 mg PO BID capsule 07/26/17 [Rx] Ferrous Sulfate 325 mg PO BIDWM tablet 07/26/17 [Rx] Lidocaine Patch [Lidoderm 5% patch] 1 each TP DAILY adh..patch 07/26/17 [Rx] OLANZapine [Zyprexa Zydis] 5 mg PO HS PRN tab.rapdis 07/26/17 [Rx] Potassium Chloride 20 meq PO BID tab.er.prt 07/26/17 [Rx] Allergies/Adverse Reactions: 3 Allergy/AdvReac Type Severity Reaction Status Date / Time alprazolam [From Xanax] AdvReac Dizziness Verified 07/19/17 10:02 citalopram AdvReac Dizziness Verified 07/19/17 10:02 divalproex sodium AdvReac Dizziness Verified 07/19/17 10:02 [From Depakote] Paroxetine [From Paxil] AdvReac Dizziness Verified 07/19/17 10:02 Date of admission: 07/23/17 12:30 Primary care physician: Poonam Hermosillo MD Consults: 07/20/17 07:17 Consult to Physical Therapy [CONS] Routine Comment: Evaluate, develop and implement POC Reason for Consult: Assist with ambulation Does patient have active BEDREST order?: No Is patient medically & hemodynamically stable?: Yes Patient assessed for mobility or mobilized this visit?: No 07/21/17 07:45 Consult to Occupational Therapy [CONS] Routine Comment: Evaluate, develop and implement POC Reason for Consult: Assist with rehab placement Does patient have active BEDREST order?: No Is patient medically & hemodynamically stable?: Yes Patient assessed for mobility or mobilized this visit?: Yes 07/23/17 07:17 Consult to Nephrology [CONS] Routine Consulting Provider: Kidney Hiram/BA/PEDRO/KARLY Reason for Consult: Hyponatremia, fluid overload Call Completed: Yes 07/23/17 15:22 Consult to Hospitalist [CONS] Routine Consulting Provider: Hospitalist Ajit Reason for Consult: Altered mental status, leukocytosis Call Completed: Yes Discharging clinician: Joo Andrews Anticipated date of discharge: 07/26/17 Exam Initial Vital Signs Temp Pulse Resp BP Pulse Ox 97.8 F 67 18 169/83 96 07/19/17 10:33 07/19/17 10:33 07/19/17 10:33 07/19/17 10:33 07/19/17 10:33 - General physical appearance Present: no distress - Neurologic Present: disoriented (mild) - Patient Status Disposition: Transfer SNF Condition: Good Functional capacity at discharge: independent ambulation (with assistance) Overall status at discharge: patient is progressing back to baseline - Discharge Instructions Follow Up With: Poonam Hermosillo MD [Primary Care Provider] - Salazar Montano MD [Partnered Physician] - (2-4 weeks. ) Additional Instructions: OK to shower OK to participate in any rehab activities. - Diet and Activity Activity: increase activity as tolerated Diet: advance to your usual diet - VTE Documentation of Mechanical Device: Intermittent pneumatic compression device
--- NOTE | 2017-07-26 08:45 | Nephrology Progress Note ---
Date of Encounter: 07/26/17 Time of Encounter: 08:45 - Assessment and Plan (1) Hyponatremia Current Visit: Yes Status: Acute Possibly related to diuresis. No other clear indications at this time. Change carrier solution for IV medications to 0.9. Fluid restriction to 1.5 liters daily. Consider saline if sodium continues to decline. TSH normal. Improving. (2) Anemia due to acute blood loss Current Visit: Yes Status: Acute Iron saturation is low. Vitamin b12 and folate are normal. Started oral iron replacement. (3) Delirium Current Visit: Yes Status: Resolved Improving. ?related to urinary obstruction vs hyponatremia. Patient with normal interaction this am. (4) Renal cyst, right Current Visit: Yes Status: Resolved Per urology. s/p nephrectomy. (5) Hypophosphatasia Current Visit: Yes Status: Acute Phosphorus replacement ordered. (6) Seizure Current Visit: Yes Status: Acute Subjective Principal diagnosis: hyponatremia Interval history: Patient is more cooperative and interactive today. She was about to eat breakfast, but had no complaint. Objective - Vital Signs Vital signs: Vital Signs Temp Pulse Resp BP Pulse Ox 07/26/17 07:45 98.3 F 16 94 07/26/17 03:44 98.6 F 90 17 154/76 94 07/26/17 00:10 98.5 F 93 17 166/74 94 07/25/17 18:09 98.4 F 93 17 138/75 94 07/25/17 14:33 98.2 F 96 18 131/76 95 07/25/17 11:00 97.8 F 92 17 112/68 95 Intake and Output 07/25/17 07/26/17 07/26/17 23:59 07:59 15:59 Intake Total 240 / 240 100 / 100 Output Total 350 / 350 250 / 250 Balance -110 / -110 -150 / -150 Intake: Oral 240 / 240 100 / 100 Output: Urine 350 / 350 250 / 250 Other: Meal Dinner Percent of Meal Consumed 0% Stool Size Moderate Stool Consistency loose Stool Color Brown # Voids 1 # Bowel Movements 1 - Lab 07/26/17 03:34 07/26/17 03:34 Most recent lab results Calcium 8.6 mg/dL (8.6-10.3) 07/26/17 03:34 Phosphorus 3.6 mg/dL (2.7-4.5) 07/26/17 03:34 Magnesium 1.7 mg/dL (1.6-2.6) 07/26/17 03:34 Urine Sodium 59.6 mEq/L 07/23/17 19:00 - VTE Documentation of Mechanical Device: Intermittent pneumatic compression device Consult Discharge Plan - Plan Additional Instructions: OK to shower OK to participate in any rehab activities. Referrals: Salazar Montano MD [Partnered Physician] - (2-4 weeks. ) Poonam Hermosillo MD [Primary Care Provider] - Prescriptions: Cefdinir [Omnicef] 300 mg PO BID #14 capsule
[2017-07-26] MEDS: lamoTRIgine 100 MG TABLET PO SCH (09:25)
[2017-07-26] MEDS: amLODIPine 5 MG TABLET PO SCH (09:25)
[2017-07-26] MEDS: Metoprolol XL (24 HR) Succ 50 MG TAB.ER.24H PO SCH (09:25)
[2017-07-26] MEDS: cefTRIAXone 1,000 MG in Water for inj. (sterile) 20 ML 10 ML IVP SCH (09:25)
[2017-07-26 10:06] VITALS: BP 138/77
--- NOTE | 2017-07-26 11:34 | Internal Med Progress Note ---
Date of Encounter: 07/26/17 Time of Encounter: 09:30 - Assessment and plan (1) Delirium Status: Resolved Assessment and plan: Unsure of patient's baseline. Multiple possible etiologies for this, include pain, bladder distention/urinary retention, change in enviornment, hyponatremia Could have a undiagnosed dementia possibility No longer needs restraints Delirium precautions in hospital: - Zyprexa HS prn agitation - Continue re-direction continuous - Straight cath as needed for urinary retension - Continue Rocephin emperically and monitor for signs of infection. Currently no signs. - Sodium approaching normal limits, management per Nephrology Resolved. Okay for discharge from acute delirium standpoint. (2) Anemia due to acute blood loss Status: Acute (3) Hyponatremia Status: Acute (4) Renal cyst, right Status: Resolved (5) Seizure Status: Acute - Time Spent With Patient Total time spent is greater than 50% in coordination of care (as documented) at patient's floor/unit and/or counseling patient: - Subjective Interval history: Patient pleasant today, more aware and less confused. - Constitutional Vitals: Temp Pulse Resp BP Pulse Ox 98.2 F 89 17 138/77 95 07/26/17 10:05 07/26/17 10:05 07/26/17 10:05 07/26/17 10:05 07/26/17 10:05 General appearance: Present: A&O X 2 (improved cognition since yesterday), severe distress - Head Head exam: Present: atraumatic, normocephalic - Eye Eye exam: Present: PERRL, conjuntiva pink, sclera anicteric Pupils: Present: PERRL - Neck Neck exam general surgery: Present: supple, trachea midline. Absent: lymphadenopathy - Respiratory Respiratory exam: Present: CTAB. Absent: accessory muscle use, rales, rhonchi, wheezes - Cardiovascular Cardiovascular exam: Present: RRR, +S1, +S2. Absent: diastolic murmur, gallop, rubs, systolic murmur - GI/Abdominal GI/Abdominal exam: Present: normal bowel sounds, soft, no peritoneal signs. Absent: distended, tenderness - Extremities Exam Extremities exam: Present: warm, radial pulses palpable and symmetrical. Absent : calf tenderness, cyanotic, pedal edema - Neurological Exam Neurological exam: Present: CN II-XII intact, oriented X3, no focal deficits. Absent: pronater drift, facial droop, speech deficit - Skin Skin exam: Present: dry, intact Internal Medicine: Result - Labs CBC & Chem 7: 07/26/17 03:34 07/26/17 03:34 Labs: Short CBC 07/26/17 Range/Units 03:34 WBC 9.9 (4.3-11.1) K/mcL Hgb 8.4 L (11.5-15.4) g/dL Hct 25.9 L (35.3-44.9) % Plt Count 326 (140-400) K/mcL Neutrophils # 6.2 (1.6-8.9) K/mcL BMP 07/26/17 03:34 Sodium 137 Potassium 3.5 Chloride 108 H Carbon Dioxide 20 L BUN 23 Creatinine 0.58 L Glucose 91 Calcium 8.6 - ABG Interpretation ABG results: PT/INR, D-dimer PT 14.3 Seconds (9.4-12.1) H 07/22/17 06:41 - VTE Documentation of Mechanical Device: Intermittent pneumatic compression device Consult Discharge Plan - Plan Additional Instructions: OK to shower OK to participate in any rehab activities. Referrals: Salazar Montano MD [Partnered Physician] - (2-4 weeks. Web Request sent to the office. Thank you) Poonam Hermosillo MD [Primary Care Provider] - Prescriptions: Cefdinir [Omnicef] 300 mg PO BID #14 capsule
== END 2017-07-26 11:24 | DRG 657 ==
LOC: 3ANU 09:30 → SAMDAY 09:30 → 3ANU 17:09
PROVIDERS: ADMIT Urology; ATTEND Urology

== ENCOUNTER 2021-11-11 11:22 | Inpatient (IN) ==
[2021-11-11 14:14] LABS: Basophils % 0.6 %; Eosinophils # 0.2 K/mcL (0.0-0.6); Eosinophils % 2.5 %; Hematocrit 38.4 % (35.3-44.9); Hemoglobin 12.6 g/dL (11.5-15.4); Immature Granulocytes % 0.3 % (0-4); Lymphocytes # 2.3 K/mcL (0.6-4.6); Lymphocytes % 31.2 %; Mean Corpuscular HGB Conc 32.8 g/dL (31.6-35.5); Mean Corpuscular Hemoglobin 31.3 pg (28.0-33.3); Mean Corpuscular Volume 95.3 fL (83.0-100.0); Mean Platelet Volume 10.8 fL (9.4-12.4); Monocytes # 0.6 K/mcL (0.0-1.3); Monocytes % 7.9 %; Neutrophils # 4.2 K/mcL (1.6-8.9); Platelet Count 170 K/mcL (140-400); Red Blood Count 4.03 M/mcL (3.82-4.97); Red Cell Distribution Width 13.7 % (11.5-14.5); Segmented Neutrophils % 57.5 %; White Blood Count 7.2 K/mcL (4.3-11.1)
[2021-11-11 14:33] LABS: BUN/Creatinine Ratio 11 (6-26); Blood Urea Nitrogen 7 mg/dL (8-23); Calcium 9.7 mg/dL (8.6-10.3); Carbon Dioxide 27 mEq/L (23-29); Chloride 106 mEq/L (98-107); Glucose 92 mg/dL (70-105); Osmolality,Calculated 292 (280-300); Potassium 3.3 mEq/L (3.5-5.1); Sodium 142 mEq/L (136-145)
[2021-11-11] MEDS ORDERED: Naloxone 0.4 MG/ML INJ IVP PRN (15:01)
[2021-11-11] MEDS ORDERED: Ondansetron 4 MG/2 ML VIAL IVP PRN ×2 (15:01→15:07)
[2021-11-11] MEDS ORDERED: *HR* HYDROcodone/Acet 5/325 mg TABLET PO PRN (15:06)
[2021-11-11] MEDS: *HR* OxyCODONE Immed Rel 5 MG TABLET PO PRN (22:13)
[2021-11-11] MEDS: lamoTRIgine 100 MG TABLET PO SCH (23:28)
[2021-11-11] MEDS: PHENobarbitaL 32.4 MG TABLET PO SCH (23:28)
[2021-11-11] MEDS: lamoTRIgine 25 MG TABLET PO SCH (23:28)
[2021-11-11] MEDS: Gabapentin 300 MG CAPSULE PO SCH (23:28)
[2021-11-11] MEDS: Acetaminophen 325 MG TABLET PO PRN (23:30)
[2021-11-12] MEDS: Gabapentin 300 MG CAPSULE PO SCH ×4 (09:21→22:22)
[2021-11-12] MEDS: Metoprolol XL (24 HR) Succ 50 MG TAB.ER.24H PO SCH (09:21)
[2021-11-12] MEDS: amLODIPine 5 MG TABLET PO SCH (09:21)
[2021-11-12] MEDS: lamoTRIgine 100 MG TABLET PO SCH ×2 (09:22→22:21)
[2021-11-12] MEDS: lamoTRIgine 25 MG TABLET PO SCH ×2 (09:22→22:22)
[2021-11-12] MEDS: Acetaminophen 325 MG TABLET PO PRN (09:24)
[2021-11-12 10:08] LABS: BUN/Creatinine Ratio 15 (6-26); Blood Urea Nitrogen 9 mg/dL (8-23); Carbon Dioxide 27 mEq/L (23-29); Chloride 108 mEq/L (98-107); Glucose 91 mg/dL (70-105); Osmolality,Calculated 290 (280-300); Potassium 3.3 mEq/L (3.5-5.1); Sodium 141 mEq/L (136-145)
[2021-11-12 16:36] LABS: INR 1.1; Prothrombin Time 12.3 Seconds (9.4-12.1)
[2021-11-12 16:39] LABS: Activated Partial Thrombo Time 34.4 Seconds (26.0-36.0)
[2021-11-12] MEDS: *HR* OxyCODONE Immed Rel 5 MG TABLET PO PRN (22:22)
[2021-11-12] MEDS: PHENobarbitaL 32.4 MG TABLET PO SCH (22:22)
[2021-11-13] MEDS: Metoprolol XL (24 HR) Succ 50 MG TAB.ER.24H PO SCH (06:54)
[2021-11-13] MEDS ORDERED: Gabapentin 300 MG CAPSULE PO ONE (07:00)
[2021-11-13] MEDS ORDERED: Ringers Solution, Lactated 1,000 ML IVC SCH ×2 (07:00→14:35)
[2021-11-13] MEDS ORDERED: tiZANidine 4 MG TABLET PO PRN (07:00)
[2021-11-13] MEDS ORDERED: CeFAZolin Syr 2,000MG/20 ML 2,000 MG/20 ML SYRINGE IVPB ONE (07:00)
[2021-11-13] MEDS ORDERED: Acetaminophen IV 1,000 MG/100 ML BAG IVPB ONE (07:00)
[2021-11-13] MEDS ORDERED: Bupivacaine/EPI 1:200k 0.25% 50 ML VIAL ONE (07:15)
[2021-11-13] MEDS ORDERED: Vancomycin 1,000 MG VIAL ONE (07:15)
[2021-11-13] MEDS ORDERED: *HR* Phenylephrine 10 MG/ML VIAL ONE (07:15)
[2021-11-13] MEDS ORDERED: *HR* Propofol 200 MG/20 ML VIAL IVP ONE (07:20)
[2021-11-13] MEDS ORDERED: Lidocaine -MPF 2% 5 ML VIAL ONE (07:24)
[2021-11-13] MEDS ORDERED: *HR* Succinylcholine 200 MG/10 ML VIAL IVP ONE (07:24)
[2021-11-13] MEDS ORDERED: Ondansetron 4 MG/2 ML VIAL ONE (07:24)
[2021-11-13] MEDS ORDERED: Lidocaine HCL 4 ML Topical Solution (Laryng-O-Jet Kit Sterile Pak) TP ONE (07:24)
[2021-11-13] MEDS ORDERED: *HR* Rocuronium Bromide 50 MG/5 ML VIAL ONE (07:24)
[2021-11-13] MEDS ORDERED: *HR* FentaNYL (PF) 100 MCG/2 ML VIAL ONE (07:27)
[2021-11-13] MEDS ORDERED: *HR* Remifentanil 2 MG VIAL IVP ONE (07:30)
[2021-11-13] MEDS ORDERED: EPHEDrine 50 MG/ML VIAL ONE (07:33)
[2021-11-13] MEDS ORDERED: *HR* Magnesium Sulfate 1 GM/2 ML VIAL ONE (07:39)
[2021-11-13] MEDS ORDERED: Cyanocobalamin (B-12) 1,000 MCG TABLET PO SCH (09:00)
[2021-11-13] MEDS ORDERED: Sugammadex Sodium 200 MG/2 ML VIAL IV ONE (09:02)
[2021-11-13] MEDS ORDERED: Ondansetron 4 MG/2 ML VIAL IVP PRN ×2 (11:32→14:35)
[2021-11-13] MEDS ORDERED: *HR* HYDROMORPHONE 2 MG/ML VIAL ONE (11:33)
[2021-11-13] MEDS: *HR* HYDROmorphone PF 0.5 MG/0.5 ML SYRINGE IVP PRN ×4 (11:42→11:57)
[2021-11-13] MEDS: *HR* FentaNYL (PF) 100 MCG/2 ML VIAL IVP PRN ×2 (12:06→12:11)
[2021-11-13] MEDS ORDERED: *HR* Midazolam HCl 2 MG/2 ML VIAL IVP PRN (12:17)
[2021-11-13] MEDS ORDERED: *HR* HYDROmorphone (PF) 1 MG/ML SYRINGE IVP ONE (12:17)
[2021-11-13] MEDS ORDERED: *HR* Metoprolol 5 MG/5 ML VIAL IVP ONE ×3 (12:46→13:00)
[2021-11-13] MEDS: lamoTRIgine 25 MG TABLET PO SCH ×2 (14:19→20:44)
[2021-11-13] MEDS: lamoTRIgine 100 MG TABLET PO SCH ×2 (14:20→20:44)
[2021-11-13] MEDS: amLODIPine 5 MG TABLET PO SCH (14:25)
[2021-11-13] MEDS ORDERED: Naloxone 0.4 MG/ML INJ IVP PRN (14:35)
[2021-11-13] MEDS: Gabapentin 300 MG CAPSULE PO SCH ×2 (16:24→20:44)
[2021-11-13] MEDS: CeFAZolin 2 GM/120 ML BAG IVPB SCH ×2 (16:24→23:52)
[2021-11-13] MEDS: *HR* OxyCODONE Immed Rel 5 MG TABLET PO PRN (18:26)
[2021-11-13] MEDS: Acetaminophen 325 MG TABLET PO PRN (20:44)
[2021-11-13] MEDS: PHENobarbitaL 32.4 MG TABLET PO SCH (20:44)
[2021-11-14] MEDS: *HR* OxyCODONE Immed Rel 5 MG TABLET PO PRN ×3 (02:50→19:34)
[2021-11-14] MEDS: Metoprolol XL (24 HR) Succ 50 MG TAB.ER.24H PO SCH (08:06)
[2021-11-14] MEDS: amLODIPine 5 MG TABLET PO SCH (08:06)
[2021-11-14] MEDS: lamoTRIgine 100 MG TABLET PO SCH ×2 (08:06→21:05)
[2021-11-14] MEDS: Gabapentin 300 MG CAPSULE PO SCH ×4 (08:06→21:05)
[2021-11-14] MEDS: lamoTRIgine 25 MG TABLET PO SCH ×2 (08:07→21:05)
[2021-11-14] MEDS: Cyanocobalamin (B-12) 1,000 MCG TABLET PO SCH (08:07)
[2021-11-14 09:57] LABS: Basophils % 0.3 %; Eosinophils # 0.1 K/mcL (0.0-0.6); Eosinophils % 0.4 %; Hematocrit 37.5 % (35.3-44.9); Hemoglobin 12.4 g/dL (11.5-15.4); Immature Granulocytes % 0.5 % (0-4); Lymphocytes % 8.1 %; Mean Corpuscular HGB Conc 33.1 g/dL (31.6-35.5); Mean Corpuscular Hemoglobin 31.5 pg (28.0-33.3); Mean Corpuscular Volume 95.2 fL (83.0-100.0); Mean Platelet Volume 11.5 fL (9.4-12.4); Monocytes % 8.4 %; Neutrophils # 9.8 K/mcL (1.6-8.9); Platelet Count 166 K/mcL (140-400); Red Blood Count 3.94 M/mcL (3.82-4.97); Red Cell Distribution Width 14.2 % (11.5-14.5); Segmented Neutrophils % 82.3 %
[2021-11-14 10:02] LABS: BUN/Creatinine Ratio 17 (6-26); Blood Urea Nitrogen 9 mg/dL (8-23); Calcium 8.8 mg/dL (8.6-10.3); Carbon Dioxide 25 mEq/L (23-29); Chloride 104 mEq/L (98-107); Glucose 112 mg/dL (70-105); Osmolality,Calculated 279 (280-300); Potassium 3.7 mEq/L (3.5-5.1); Sodium 135 mEq/L (136-145)
[2021-11-14 11:14] LABS: White Blood Count 11.9 K/mcL (4.3-11.1)
[2021-11-14] MEDS: *HR* HYDROcodone/Acet 5/325 mg TABLET PO PRN (12:32)
[2021-11-14] MEDS: PHENobarbitaL 32.4 MG TABLET PO SCH (21:05)
[2021-11-15] MEDS: *HR* OxyCODONE Immed Rel 5 MG TABLET PO PRN ×3 (01:50→23:28)
[2021-11-15] MEDS: amLODIPine 5 MG TABLET PO SCH (08:19)
[2021-11-15] MEDS: Metoprolol XL (24 HR) Succ 50 MG TAB.ER.24H PO SCH (08:20)
[2021-11-15] MEDS: lamoTRIgine 100 MG TABLET PO SCH ×2 (08:20→20:08)
[2021-11-15] MEDS: lamoTRIgine 25 MG TABLET PO SCH ×2 (08:20→20:08)
[2021-11-15] MEDS: Gabapentin 300 MG CAPSULE PO SCH ×4 (08:20→20:08)
[2021-11-15] MEDS: Cyanocobalamin (B-12) 1,000 MCG TABLET PO SCH (08:20)
[2021-11-15] MEDS: *HR* HYDROcodone/Acet 5/325 mg TABLET PO PRN (11:37)
[2021-11-15] MEDS: PHENobarbitaL 32.4 MG TABLET PO SCH (20:08)
[2021-11-16] MEDS: amLODIPine 5 MG TABLET PO SCH (08:02)
[2021-11-16] MEDS: Gabapentin 300 MG CAPSULE PO SCH ×4 (08:02→21:02)
[2021-11-16] MEDS: Cyanocobalamin (B-12) 1,000 MCG TABLET PO SCH (08:02)
[2021-11-16] MEDS: lamoTRIgine 100 MG TABLET PO SCH ×2 (08:03→21:03)
[2021-11-16] MEDS: lamoTRIgine 25 MG TABLET PO SCH ×2 (08:03→21:02)
[2021-11-16] MEDS: Metoprolol XL (24 HR) Succ 50 MG TAB.ER.24H PO SCH (08:03)
[2021-11-16] MEDS: *HR* OxyCODONE Immed Rel 5 MG TABLET PO PRN (08:16)
[2021-11-16] MEDS: tiZANidine 4 MG TABLET PO PRN ×2 (11:25→21:02)
[2021-11-16] MEDS: polyethylene glycoL 3350 17 GM POWD.PACK PO SCH (11:32)
[2021-11-16] MEDS: PHENobarbitaL 32.4 MG TABLET PO SCH (21:03)
[2021-11-17] MEDS: *HR* HYDROcodone/Acet 5/325 mg TABLET PO PRN (06:52)
[2021-11-17] MEDS: lamoTRIgine 100 MG TABLET PO SCH ×2 (09:42→20:16)
[2021-11-17] MEDS: amLODIPine 5 MG TABLET PO SCH (09:42)
[2021-11-17] MEDS: Cyanocobalamin (B-12) 1,000 MCG TABLET PO SCH (09:43)
[2021-11-17] MEDS: Gabapentin 300 MG CAPSULE PO SCH ×4 (09:43→20:16)
[2021-11-17] MEDS: Metoprolol XL (24 HR) Succ 50 MG TAB.ER.24H PO SCH (09:43)
[2021-11-17] MEDS: polyethylene glycoL 3350 17 GM POWD.PACK PO SCH (09:44)
[2021-11-17] MEDS: lamoTRIgine 25 MG TABLET PO SCH ×2 (09:44→20:16)
[2021-11-17] MEDS: *HR* OxyCODONE Immed Rel 5 MG TABLET PO PRN (09:45)
[2021-11-17] MEDS ORDERED: Ergocalciferol (VIT D2) 50,000 UNIT (1.25MG) CAP PO SCH ×2 (12:00→18:00)
[2021-11-17 14:36] LABS: Hematocrit 37.5 % (35.3-44.9); Hemoglobin 12.3 g/dL (11.5-15.4); Mean Corpuscular HGB Conc 32.8 g/dL (31.6-35.5); Mean Corpuscular Hemoglobin 30.8 pg (28.0-33.3); Red Blood Count 3.99 M/mcL (3.82-4.97); Red Cell Distribution Width 13.9 % (11.5-14.5); White Blood Count 8.7 K/mcL (4.3-11.1)
[2021-11-17 14:37] LABS: Basophils # 0.1 K/mcL (0.0-0.2); Basophils % 0.6 %; Eosinophils # 0.3 K/mcL (0.0-0.6); Eosinophils % 2.9 %; Immature Granulocytes % 0.5 % (0-4); Lymphocytes # 1.4 K/mcL (0.6-4.6); Lymphocytes % 16.2 %; Monocytes # 1.1 K/mcL (0.0-1.3); Neutrophils # 5.8 K/mcL (1.6-8.9); Platelet Count 204 K/mcL (140-400); Segmented Neutrophils % 66.8 %
[2021-11-17 15:00] LABS: BUN/Creatinine Ratio 32 (6-26); Blood Urea Nitrogen 18 mg/dL (8-23); Calcium 9.6 mg/dL (8.6-10.3); Carbon Dioxide 24 mEq/L (23-29); Chloride 101 mEq/L (98-107); Glucose 116 mg/dL (70-105); Osmolality,Calculated 277 (280-300); Potassium 4.1 mEq/L (3.5-5.1); Sodium 132 mEq/L (136-145)
[2021-11-17] MEDS: PHENobarbitaL 32.4 MG TABLET PO SCH (20:16)
[2021-11-17] MEDS: Sennosides/Docusate Sodium TABLET PO SCH (20:16)
[2021-11-17] MEDS: Acetaminophen 325 MG TABLET PO PRN (20:18)
[2021-11-18] MEDS: lamoTRIgine 25 MG TABLET PO SCH (07:56)
[2021-11-18] MEDS: lamoTRIgine 100 MG TABLET PO SCH (07:56)
[2021-11-18] MEDS: Cyanocobalamin (B-12) 1,000 MCG TABLET PO SCH (07:56)
[2021-11-18] MEDS: Gabapentin 300 MG CAPSULE PO SCH (07:56)
[2021-11-18] MEDS: amLODIPine 5 MG TABLET PO SCH (07:56)
[2021-11-18] MEDS: Sennosides/Docusate Sodium TABLET PO SCH (07:57)
[2021-11-18] MEDS: polyethylene glycoL 3350 17 GM POWD.PACK PO SCH (07:57)
[2021-11-18] MEDS: Metoprolol XL (24 HR) Succ 50 MG TAB.ER.24H PO SCH (07:57)
[2021-11-18 11:05] LABS: Adenovirus Not Detected (Not Detect); Bordetella Pertussis Not Detected (Not Detect); Chlamydophila pneumoniae Not Detected (Not Detect); Coronavirus 229E Not Detected (Not Detect); Coronavirus HKU1 Not Detected (Not Detect); Coronavirus NL63 Not Detected (Not Detect); Coronavirus OC43 Not Detected (Not Detect); Human Metapneumovirus Not Detected (Not Detect); Human Rhinovirus/Enterovirus Not Detected (Not Detect); Influenza A Subtype 2009 H1 Not Detected (Not Detect); Influenza B Not Detected (Not Detect); Mycoplasma pneumoniae Not Detected (Not Detect); Parainfluenza Virus 1 Not Detected (Not Detect); Parainfluenza Virus 2 Not Detected (Not Detect); Parainfluenza Virus 3 Not Detected (Not Detect); Parainfluenza Virus 4 Not Detected (Not Detect); Respiratory Syncytial Virus Not Detected (Not Detect); SARS-CoV-2 Not Detected (Not Detect)
[2021-11-18 11:22] VITALS: BP 146/78; PULSE 68; TEMP 98.4; O2SAT 97
== END 2021-11-18 12:39 | DRG 458 ==
LOC: 4WAOSI 11:22 → EMEROOARM 11:22 → 4WAOSI 16:09 → SUATTDRO 11-14 11:12
PROVIDERS: ADMIT Student in an Organized Health Care Education/Training Program; ATTEND General Practice